=== PATIENT | female | born 1960 | race Caucasian/White ===

== ENCOUNTER 2016-10-20 10:07 | Inpatient (IN) ==
[2016-10-20] MEDS: LEVAQUIN 750 MG/D5W 150 ML IV SCH (12:22)
[2016-10-20] MEDS: SOLU-MEDROL IV SCH ×2 (12:23→20:45)
[2016-10-20] MEDS: NS 1,000 ML IV SCH (12:23)
[2016-10-20 12:32] LABS: BE 8.2 mmoll (-3.0-3.0); BLOOD TYPE ARTERIAL; DRAW SITE R RADIAL; O2(CT) 14.7 mL/dL (15.0-23.0); PO2(98.6) 51 mmHg (60-100); SAMPLE BLOOD; SAO2 86.7 % (95.0-100.0); THB 13.1 g/dL (11.5-17.4); pH(98.6) 7.39 (7.35-7.45)
[2016-10-20 12:39] LABS: MANUAL DIFF NEEDED? NO
[2016-10-20] MEDS: DUONEB (A & A) INH SCH ×4 (12:40→23:19)
[2016-10-20 12:45] LABS: BASO% 2.8 % (0.0-0.8); EOS# 0.09 X1000 (0.0-0.7); EOS% 1.1 % (0.0-10.0); HEMOGLOBIN 13.1 g/dL (12.0-16.0); IMM GRAN# 0.02 X1000 (0.0-0.04); IMM GRAN% 0.3 % (0.0-0.5); LYMPH# 0.88 X1000 (1.2-3.4); MCHC 31.2 g/dL (33-37); MCV 86.4 FL (81-99); MONO# 0.86 X1000 (0.11-0.59); MONO% 10.8 % (1.7-9.3); MPV 10.3 FL (7.4-10.4); PLT 332 X1000 (130-400); RBC 4.86 XMIL (4.2-5.4)
[2016-10-20 12:46] LABS: MODALITY ROOM AIR; PCO2(98.6) 58 mmHg (35-45)
[2016-10-20 12:47] LABS: ALLEN TEST YES
--- NOTE | 2016-10-20 12:52 | EKG Report ---
Test Performed on : 10/20/2016 12:47:45 PM Test Reason : sob Blood Pressure : / mmHG Vent. Rate : 087 BPM Atrial Rate : 087 BPM P-R Int : 152 ms QRS Dur : 086 ms QT Int : 366 ms P-R-T Axes : 075 089 077 degrees QTc Int : 440 ms Normal sinus rhythm. Cannot rule out Anterior infarct , age undetermined Abnormal ECG When compared with ECG of 10-JUL-2015 08:23, Minimal criteria for Anterior infarct are now present Confirmed by Wojciech Wilkerson MD ([id number]) on 10/21/2016 8:58:41 PM
[2016-10-20 13:03] LABS: MAGNESIUM 1.7 mg/dL (1.5-2.7)
[2016-10-20 13:04] LABS: AGAP 9; ALBUMIN 3.7 g/dL (3.5-5.0); ALKALINE PHOSPHATASE 76 U/L (32-104); BUN 14 mg/dL (8-22); CHLORIDE 92 mmol/L (98-107); COSMO 272; GOT 13 U/L (10-30); GPT 15 U/L (10-36); POTASSIUM 4.3 mmol/L (3.5-5.1); SODIUM 132 mmol/L (136-145); TCO2 31 mmol/L (25-35); TOTAL PROTEIN 6.5 g/dL (6.3-8.3)
--- NOTE | 2016-10-20 14:43 | Diag Imaging Result Document ---
PROCEDURE NAME: CHEST-2 VIEWS - 10/20/2016 TWO VIEWS OF THE CHEST: FINDINGS: There is a calcified granuloma in the right base. The heart size and pulmonary vascularity are within normal limits. There are calcified nodes in the right tracheobronchial and subcarinal region. There is thickening of the apical pleura particularly on the right. There is apparent COPD. Compared to 08/27/2016, there has been no significant change in the appearance of the chest. IMPRESSION: COPD and granulomatous changes.
--- NOTE | 2016-10-20 16:58 | HISTORY AND PHYSICAL ---
CHIEF COMPLAINT: Dyspnea. HISTORY OF PRESENT ILLNESS: Ms Lanza is a 56-year-old female who was at the office today with complaint of having worsening dyspnea for the previous 4 days. She has not been able to use her respiratory medicines since some of them were not covered by her insurance. She denies having any cough or fever. She also denies having any chest pain. PAST MEDICAL HISTORY: 1. COPD. 2. Type 2 diabetes mellitus. 3. Hypertension. 4. Dyslipidemia. 5. Gastroesophageal reflux. SOCIAL HISTORY: The patient has been smoking 1 pack of cigarettes per day since 1977. She does not use any recreational drugs. She also denies drinking alcohol. She lives with her . FAMILY HISTORY: There is family history of lung cancer. ALLERGIES: Patient reports to be allergic to Lopid and lisinopril. CURRENT HOME MEDICATIONS: 1. Aspirin 81 mg orally once daily. 2. Wellbutrin 150 mg orally once daily. 3. Glimepiride 4 mg orally once daily in the morning. 4. Metformin 1000 mg orally twice daily. 5. Lovastatin 10 mg orally once daily at bedtime. 6. Albuterol plus ipratropium bromide breathing treatments every 6 hours as needed for shortness of breath and wheezing. 7. Metoprolol ER 100 mg orally once daily. 8. Montelukast 10 mg orally once daily. 9. Omeprazole 20 mg orally once daily in the morning. 10. Pramipexole 1 mg orally once daily at bedtime. 11. ProAir HFA inhaler 2 puffs q.4 hours as needed for wheezing. 12. Spiriva 1 capsule by inhaler once daily. 13. Spironolactone/hydrochlorothiazide 25 mg/25 mg orally once daily in the morning. 14. Symbicort 160/4.5 two puffs twice daily. 15. Theophylline ER 300 mg orally once daily. 16. Vitamin B12 500 mcg orally once daily. REVIEW OF SYSTEMS: A full 14-point review of system was obtained that was pretty much the same as already has been explained in the HPI. PHYSICAL EXAMINATION: VITAL SIGNS: Temperature 98.2 degrees, pulse 61 per minute, respiratory rate 20 per minute, blood pressure 107/70, pulse oximetry 81% on room air. GENERAL: Patient is alert and oriented x3. She appears to be dyspneic. HEENT: Within normal limits. NECK: Supple without any thyromegaly. LYMPHATICS: No lymphadenopathy noted in the neck or axillary areas. RESPIRATORY SYSTEM: Patient appears to be very dyspneic. Bilateral lung air entry is significantly decreased but there are no rales or rhonchi present on auscultation. CARDIOVASCULAR SYSTEM: First and second heart sounds are audible without any murmurs or gallops. There is no pedal edema. GASTROINTESTINAL: Abdomen is nondistended. It is soft and nontender on palpation. No viscera are palpable and normal bowel sounds are present. MUSCULOSKELETAL SYSTEM: No deformities are present. NEUROLOGIC: No focal deficits are present. PSYCHIATRIC: Normal affect noted. GENITOURINARY: Deferred. INTEGUMENTARY: Skin is warm and without any rash. IMPRESSION: 1. Dyspnea with hypoxemia secondary to acute chronic obstructive pulmonary disease exacerbation. 2. Multiple comorbid conditions including type 2 diabetes mellitus that has been uncontrolled, hypertension and dyslipidemia. PLAN: Patient will be admitted to the Medical-Surgical floor on telemetry at [facility] and I am going to start her on Solu-Medrol 60 mg IV q.8 hours along with albuterol plus ipratropium nebulization treatments every 6 hours. She will have lispro insulin as per sliding scale to control her glucose levels and would also start her on levofloxacin 750 mg IV q.24 hours. I am going to obtain CBC, CMP, ABG, UA, ECG, proBNP and troponin levels along with chest x-rays on admission. She will continue her routine home medications and will follow the clinical course at the hospital. NEVA
[2016-10-20] MEDS: HUMALOG DOSE (PARKWAY) SUBQ SCH ×2 (17:25→22:26)
[2016-10-20] MEDS: LOVENOX SUBQ SCH (17:25)
[2016-10-20] MEDS: MEVACOR PO SCH (17:26)
[2016-10-20] MEDS: GLUCOPHAGE PO SCH (17:26)
[2016-10-20] MEDS: SPIRIVA INH SCH (20:14)
[2016-10-20] MEDS: MIRAPEX PO SCH (20:45)
[2016-10-21 01:35] LABS: URINE CULTURE PL NEEDED? NO; URINE SOURCE CLEAN CATCH
[2016-10-21] MEDS: NS 1,000 ML IV SCH ×3 (01:40→23:32)
[2016-10-21 01:51] LABS: BILIRUBIN URINE NEGATIVE (NEGATIVE); BLOOD URINE NEGATIVE (NEGATIVE); CLARITY CLEAR (CLEAR); COLOR YELLOW; LEUKOCYTES URINE NEGATIVE (NEGATIVE); NITRITE URINE NEGATIVE (NEGATIVE); PH URINE 6.5; PROTEIN URINE NEGATIVE (NEGATIVE); UROBILINOGEN URINE NORMAL
[2016-10-21 01:54] LABS: URINE EPITHELIAL CELLS <10 /HPF (<10); URINE RBC <10 /HPF (<10); URINE WBC <10 /HPF (<10)
[2016-10-21] MEDS: DUONEB (A & A) INH SCH ×6 (03:11→23:46)
[2016-10-21] MEDS: SOLU-MEDROL IV SCH ×3 (03:48→21:01)
[2016-10-21] MEDS: HUMALOG DOSE (PARKWAY) SUBQ SCH ×4 (06:56→21:10)
[2016-10-21] MEDS: PRILOSEC PO SCH (06:56)
[2016-10-21] MEDS ORDERED: TYLENOL PO PRN (07:27)
[2016-10-21] MEDS ORDERED: SPIRIVA INH SCH (07:30)
[2016-10-21] MEDS: THEO-DUR PO SCH (08:19)
[2016-10-21] MEDS: TOPROL XL PO SCH (08:19)
[2016-10-21] MEDS: GLUCOPHAGE PO SCH ×2 (08:19→17:39)
[2016-10-21] MEDS: WELLBUTRIN XL PO SCH (08:20)
[2016-10-21] MEDS: HYDROCHLOROTHIAZIDE PO SCH (08:20)
[2016-10-21] MEDS: SINGULAIR PO SCH (08:20)
[2016-10-21] MEDS: ASPIRIN EC PO SCH (08:20)
[2016-10-21] MEDS: VITAMIN B-12 PO SCH (08:20)
[2016-10-21] MEDS: AMARYL PO SCH (08:20)
[2016-10-21] MEDS: ALDACTONE PO SCH (08:20)
[2016-10-21] MEDS ORDERED: TOPROL XL PO SCH (09:00)
[2016-10-21] MEDS ORDERED: CYANOCOBALAMIN PO SCH (09:00)
[2016-10-21] MEDS ORDERED: SPIRONOLACT PO SCH (09:00)
[2016-10-21] MEDS ORDERED: THEO-24 PO SCH (09:00)
[2016-10-21] MEDS ORDERED: FOLIC ACID PO SCH (09:00)
[2016-10-21] MEDS ORDERED: HYDROCHLOROTHIAZID PO SCH (09:00)
[2016-10-21] MEDS: LEVAQUIN 750 MG/D5W 150 ML IV SCH (11:23)
[2016-10-21] MEDS: LOVENOX SUBQ SCH (15:51)
[2016-10-21] MEDS: MEVACOR PO SCH (17:39)
[2016-10-21] MEDS: SPIRIVA INH SCH ×2 (19:55→22:09)
[2016-10-21] MEDS: MIRAPEX PO SCH (21:01)
[2016-10-22] MEDS: SOLU-MEDROL IV SCH ×3 (03:48→20:29)
[2016-10-22] MEDS: DUONEB (A & A) INH SCH ×6 (04:11→22:38)
[2016-10-22] MEDS: HUMALOG DOSE (PARKWAY) SUBQ SCH ×4 (06:36→21:26)
[2016-10-22] MEDS: PRILOSEC PO SCH (06:36)
[2016-10-22] MEDS: GLUCOPHAGE PO SCH ×2 (08:17→18:33)
[2016-10-22] MEDS: THEO-DUR PO SCH (08:17)
[2016-10-22] MEDS: AMARYL PO SCH (08:18)
[2016-10-22] MEDS: WELLBUTRIN XL PO SCH (08:18)
[2016-10-22] MEDS: VITAMIN B-12 PO SCH (08:18)
[2016-10-22] MEDS: ALDACTONE PO SCH (08:18)
[2016-10-22] MEDS: ASPIRIN EC PO SCH (08:18)
[2016-10-22] MEDS: SINGULAIR PO SCH (08:18)
[2016-10-22] MEDS: HYDROCHLOROTHIAZIDE PO SCH (08:18)
[2016-10-22] MEDS: TOPROL XL PO SCH (08:18)
[2016-10-22] MEDS: NS 1,000 ML IV SCH ×2 (08:23→18:33)
[2016-10-22 09:13] LABS: BE 4.6 mmoll (-3.0-3.0); BLOOD TYPE ARTERIAL; DRAW SITE R RADIAL; METHB 0.8 % (0.0-1.5); O2(CT) 14.9 mL/dL (15.0-23.0); PO2(98.6) 59 mmHg (60-100); SAMPLE BLOOD; SAO2 90.3 % (95.0-100.0); pH(98.6) 7.38 (7.35-7.45)
[2016-10-22 09:20] LABS: PCO2(98.6) 52 mmHg (35-45)
[2016-10-22 09:21] LABS: MODALITY ROOM AIR
[2016-10-22 09:22] LABS: ALLEN TEST YES
[2016-10-22] MEDS: LEVAQUIN 750 MG/D5W 150 ML IV SCH (13:40)
[2016-10-22] MEDS: LOVENOX SUBQ SCH (15:54)
[2016-10-22] MEDS: MEVACOR PO SCH (18:33)
[2016-10-22] MEDS: SPIRIVA INH SCH (19:05)
[2016-10-22] MEDS: MIRAPEX PO SCH (20:29)
[2016-10-23] MEDS: DUONEB (A & A) INH SCH ×3 (02:49→11:30)
[2016-10-23] MEDS: NS 1,000 ML IV SCH (03:46)
[2016-10-23] MEDS: SOLU-MEDROL IV SCH (03:46)
[2016-10-23] MEDS: PRILOSEC PO SCH (06:30)
[2016-10-23] MEDS: HUMALOG DOSE (PARKWAY) SUBQ SCH ×2 (06:30→11:40)
[2016-10-23] MEDS: GLUCOPHAGE PO SCH (08:08)
[2016-10-23] MEDS: ALDACTONE PO SCH (08:08)
[2016-10-23] MEDS: THEO-DUR PO SCH (08:08)
[2016-10-23] MEDS: TOPROL XL PO SCH (08:08)
[2016-10-23] MEDS: AMARYL PO SCH (08:08)
[2016-10-23] MEDS: WELLBUTRIN XL PO SCH (08:09)
[2016-10-23] MEDS: SINGULAIR PO SCH (08:09)
[2016-10-23] MEDS: HYDROCHLOROTHIAZIDE PO SCH (08:09)
[2016-10-23] MEDS: ASPIRIN EC PO SCH (08:09)
[2016-10-23] MEDS: VITAMIN B-12 PO SCH (08:09)
--- NOTE | 2016-10-23 10:54 | DISCHARGE SUMMARY ---
ADMISSION DATE: 10/20/2016 DISCHARGE DATE: 10/23/2016 DISCHARGE DIAGNOSES: 1. Dyspnea and hypoxemia secondary to acute chronic obstructive pulmonary disease exacerbation. 2. Type 2 diabetes mellitus. 3. Hypertension. HOSPITAL COURSE: Ms. Lanza is a 56-year-old, female who was admitted to the hospital after worsening dyspnea of 4 days duration that was associated with hypoxemia. She was treated here in the hospital with oxygen along with IV Solu-Medrol. She was also treated with albuterol and Atrovent nebulization treatments and her routine home medications were continued. Furthermore she was given levofloxacin intravenously for any possible lower respiratory infection. Her condition has improved although she is still hypoxemic and, therefore, she will be discharged on home oxygen. DISCHARGE MEDICATIONS: 1. Aspirin 81 mg orally once daily. 2. Wellbutrin XR 150 mg orally once daily. 3. Glimepiride 4 mg orally once daily in the morning. 4. Metformin 1000 mg orally twice daily. 5. Lovastatin 10 mg orally once daily at bedtime. 6. Albuterol plus ipratropium bromide breathing treatments every 6 hours as directed. 7. Metoprolol ER 100 mg orally once daily. 8. Montelukast 10 mg orally once daily. 9. Omeprazole 20 mg orally once daily in the morning. 10. Pramipexole 1 mg orally once daily at bedtime. 11. ProAir HFA inhaler 2 puffs q.4 hours as needed for wheezing. 12. Spiriva 1 capsule by inhalation once daily. 13. Spironolactone/hydrochlorothiazide 25 mg/25 mg orally once daily in the morning. 14. Symbicort 160/4.5 two puffs twice daily. 15. Theophylline ER 300 mg orally once daily. 16. Vitamin B12 500 mcg orally once daily. 17. Medrol Dosepak to be taken as directed. 18. Oxygen 2 L 24 hours via nasal cannula. FOLLOWUP: She will follow with me at the office in approximately 4-5 days.
[2016-10-23 12:36] VITALS: BP 156/59
== END 2016-10-23 14:45 | disposition home health service (06) | DRG 192 ==
LOC: P.DIRADM 10:07 → P.MEDSURG 10:53
PROVIDERS: ADMIT Internal Medicine; ATTEND Internal Medicine
DX: J44.1 Chronic obstructive pulmonary disease with (acute) exacerbation (principal); E11.65 Type 2 diabetes mellitus with hyperglycemia; I10 Essential (primary) hypertension; R09.02 Hypoxemia; E78.5 Hyperlipidemia, unspecified; K21.9 Gastro-esophageal reflux disease without esophagitis; F17.210 Nicotine dependence, cigarettes, uncomplicated; R51 Headache; Z80.1 Family history of malignant neoplasm of trachea, bronchus and lung; Z79.899 Other long term (current) drug therapy; Z79.82 Long term (current) use of aspirin; Z79.84 Long term (current) use of oral hypoglycemic drugs; Z79.51 Long term (current) use of inhaled steroids
CPT/HCPCS: 71020; 80053; 81001; 82550; 82805; 82948; 83735; 83880; 84484; 85025; 93005; 93010; 94640; 94761; J1650; J1815; J2930; J7030

== ENCOUNTER 2017-02-27 10:11 | Inpatient (IN) ==
[2017-02-27 10:35] LABS: BE 5.8 mmoll (-3.0-3.0); BLOOD TYPE ARTERIAL; DRAW SITE R RADIAL; METHB 0.8 % (0.0-1.5); O2(CT) 14.7 mL/dL (15.0-23.0); SAMPLE BLOOD; SAO2 87.5 % (95.0-100.0); THB 12.7 g/dL (11.5-17.4); pH(98.6) 7.39 (7.35-7.45)
[2017-02-27 10:38] LABS: ALLEN TEST YES; MODALITY ROOM AIR
[2017-02-27 10:40] LABS: PCO2(98.6) 53 mmHg (35-45); PO2(98.6) 49 mmHg (60-100)
[2017-02-27 10:50] LABS: MANUAL DIFF NEEDED? NO
[2017-02-27 10:53] LABS: BASO% 0.6 % (0.0-0.8); EOS# 0.23 X1000 (0.0-0.7); EOS% 2.8 % (0.0-10.0); HEMATOCRIT 40.8 % (37.0-47.0); HEMOGLOBIN 12.7 g/dL (12.0-16.0); IMM GRAN# 0.03 X1000 (0.0-0.04); IMM GRAN% 0.4 % (0.0-0.5); LYMPH# 1.31 X1000 (1.2-3.4); LYMPH% 15.8 % (20.5-51.1); MCH 26.3 PG (27-31); MCHC 31.1 g/dL (33-37); MCV 84.5 FL (81-99); MONO% 10.9 % (1.7-9.3); MPV 10.3 FL (7.4-10.4); NEUT% 69.5 % (42.2-75.2); PLT 375 X1000 (130-400); RBC 4.83 XMIL (4.2-5.4)
--- NOTE | 2017-02-27 11:12 | Diag Imaging Result Doc PS360 ---
EXAM: CHEST-2 VIEWS HISTORY: cough TECHNIQUE: PA and lateral chest COMMENT: There are densely calcified nodes in the subcarina right hilum and right tracheobronchial region. There are calcified granulomata in the right lower lobe. There may be COPD. There is apical pleural thickening on the right. Compared to 02/24/2017 there has been no significant change. IMPRESSION: Stable chest. Electronically signed by Azael Jenkins 02/27/2017 11:10 AM
[2017-02-27 11:21] LABS: AGAP 11; ALBUMIN 4.4 g/dL (3.5-5.0); ALKALINE PHOSPHATASE 78 U/L (32-104); BUN 20 mg/dL (8-22); CALCIUM 9.5 mg/dL (8.8-10.2); CHLORIDE 93 mmol/L (98-107); COSMO 282; GOT 18 U/L (10-30); GPT 19 U/L (10-36); SODIUM 134 mmol/L (136-145); TCO2 30 mmol/L (25-35); TOTAL PROTEIN 7.3 g/dL (6.3-8.3)
[2017-02-27] MEDS ORDERED: SOLU-MEDROL IV ONE (12:06)
[2017-02-27] MEDS ORDERED: DUONEB (A & A) INH ONE (12:06)
[2017-02-27] MEDS ORDERED: DUONEB (A & A) ONE (12:16)
[2017-02-27] MEDS ORDERED: ZOFRAN IV PRN (12:31)
[2017-02-27] MEDS ORDERED: DUONEB (A & A) INH PRN (12:34)
[2017-02-27 13:21] LABS: HEMOGLOBIN A1C 8.5 % (4.8-6.0)
[2017-02-27] MEDS: DUONEB (A & A) INH SCH ×3 (14:49→22:35)
[2017-02-27] MEDS ORDERED: HUMALOG DOSE (PARKWAY) SUBQ SCH (16:00)
--- NOTE | 2017-02-27 16:27 | HISTORY AND PHYSICAL ---
PRIMARY CARE PHYSICIAN: Braulio Gonzalez MD CHIEF COMPLAINT: Shortness of breath. HISTORY OF PRESENT ILLNESS: This is a 56-year-old female with a history of chronic obstructive pulmonary disease with continued tobacco use, diabetes type 2, who presented to the emergency room today for recheck after being seen 3 days prior in the emergency room. Being diagnosed at this time with bronchitis. Given a Z-Keanu and instructed to follow up with Dr. Gonzalez. The patient's symptoms have increased over the last 12-18 hours; therefore, she presented back to the emergency room. On arrival, she was found to have O2 sats as low as 88 to 89% with a chest x-ray unchanged actually from the . She was given 125 of Solu-Medrol, DuoNeb treatment, and admitted for further evaluation and treatment. PAST MEDICAL HISTORY: Type 2 diabetes, chronic obstructive pulmonary disease, hypertension, dyslipidemia with history of intolerance to statins, gastroesophageal reflux disease, chronic back pain, restless legs syndrome, and allergic rhinitis. SOCIAL HISTORY: She smokes 1 to 1-1/2 pack of cigarettes a day. She denies alcohol or illicit drug use. ALLERGIES: Gemfibrozil, which causes muscle pain and lisinopril which causes angioedema. HOME MEDICATIONS: A list will be obtained. REVIEW OF SYSTEMS: A 14 point review of systems is discussed with the patient, with pertinent positives being shortness of breath, 2-3 pillow orthopnea, dyspnea on exertion, productive cough, sore throat, and dyspnea on exertion. She denied any chest pain, palpitations, dizziness, syncope, nausea, vomiting, diarrhea, constipation, black or bloody vomitus, black or bloody stools, hematuria, dysuria, frequency, or urgency. PHYSICAL EXAMINATION: GENERAL: This is a 56-year-old female, who is sitting in the bed in mild distress. VITAL SIGNS: Blood pressure is 150/70 with an oxygen saturation of 87% on room air. Respirations are 26 and 32. Temperature is 98.2 degrees. HEENT: Head is normocephalic, atraumatic. Pupils equal, round, react to light. EOMs are intact. Sclerae anicteric. Mucous membranes are moist. She does have poor dentition. NECK: Supple, with trachea midline. CARDIOVASCULAR: Regular rate and rhythm. S1 and S2 are appreciated, with no murmurs or gallops. PULMONARY: Breath sounds are diminished throughout with wheezing bilateral. She does have prolonged expiration. Chest does rise and fall symmetrically with respiration. GASTROINTESTINAL: Abdomen is soft, nontender, nondistended with bowel sounds in all 4 quadrants. BACK: No costovertebral angle tenderness. No spine tenderness. MUSCULOSKELETAL: Good range of motion of joints. NEUROLOGIC: She is alert and oriented x3. Cranial nerves 2-12 grossly intact. EXTREMITIES: No clubbing, cyanosis, or edema. Calves are nontender. Pulses are palpable x4. DIAGNOSTICS: WBC is 8.2, with a hemoglobin of 12.7, hematocrit 40.8, platelets of 375,000. Sodium is 134, potassium 4, BUN 20, creatinine 0.8, with a glucose of 306. Hemoglobin A1c is 8.5. ASSESSMENT AND PLAN: 1. Chronic obstructive pulmonary disease exacerbation, failed outpatient treatment. 2. Bronchitis, failed outpatient treatment. 3. Insulin-dependent diabetes, noncompliant with a hemoglobin A1c of 8.5. 4. Hypertension. 5. Subjective fever. 6. Hypoxemia. The patient will be admitted to the hospital. We will identify her home medications and continue as appropriate. We will give supplemental oxygen with DuoNeb q.4 hours or q.2 hours p.r.n., Solu- Medrol 125 x 1 then 60 q.8 hours IV then will taper. As she had has had a productive cough and subjective fever, did have an elevated white count on the . Will go ahead and get a sputum culture and blood cultures and start her on Levaquin 750 prophylactic. Antibiotics may be changed as appropriate if cultures return positive. We will give fingerstick blood sugars with sliding scale insulin. She will be placed on telemetry. For DVT prophylaxis we will use Lovenox, for GI prophylaxis Prilosec. Further treatments pending hospital course. Dictated by ASHLEY Chau for Brijesh Cedeno MD cc: ASHLEY Chau MD
[2017-02-27] MEDS: NS 1,000 ML IV SCH (16:49)
[2017-02-27] MEDS: LEVAQUIN 750 MG/D5W 750 MG/150 ML IVPB IV SCH (16:49)
[2017-02-27] MEDS: SOLU-MEDROL IV SCH (22:00)
[2017-02-27] MEDS: MIRAPEX PO SCH (23:59)
[2017-02-28] MEDS: DUONEB (A & A) INH SCH ×6 (02:44→23:29)
[2017-02-28] MEDS: SOLU-MEDROL IV SCH ×3 (04:30→22:17)
[2017-02-28 05:52] LABS: BLOOD TYPE ARTERIAL; DRAW SITE R BRACHIAL; METHB 0.7 % (0.0-1.5); O2(CT) 15.7 mL/dL (15.0-23.0); PO2(98.6) 67 mmHg (60-100); SAMPLE BLOOD; SAO2 94.4 % (95.0-100.0); THB 12.1 g/dL (11.5-17.4); pH(98.6) 7.38 (7.35-7.45)
[2017-02-28 05:55] LABS: ALLEN TEST NO; MODALITY CANNULA; PCO2(98.6) 55 mmHg (35-45)
[2017-02-28 06:30] LABS: HEMATOCRIT 37.9 % (37.0-47.0); HEMOGLOBIN 11.8 g/dL (12.0-16.0); MCH 26.1 PG (27-31); MCHC 31.1 g/dL (33-37); MCV 83.8 FL (81-99); MPV 10.4 FL (7.4-10.4); RBC 4.52 XMIL (4.2-5.4)
[2017-02-28] MEDS: PRILOSEC PO SCH (06:39)
[2017-02-28] MEDS: NS 1,000 ML IV SCH ×3 (06:40→22:24)
[2017-02-28] MEDS: HUMALOG DOSE (PARKWAY) SUBQ SCH ×4 (06:43→22:18)
[2017-02-28 06:47] LABS: AGAP 12; ALKALINE PHOSPHATASE 72 U/L (32-104); BUN 18 mg/dL (8-22); CALCIUM 9.5 mg/dL (8.8-10.2); CHLORIDE 94 mmol/L (98-107); COSMO 288; GOT 12 U/L (10-30); GPT 17 U/L (10-36); MAGNESIUM 2.1 mg/dL (1.5-2.7); POTASSIUM 4.9 mmol/L (3.5-5.1); SODIUM 135 mmol/L (136-145); TCO2 30 mmol/L (25-35); TOTAL PROTEIN 6.8 g/dL (6.3-8.3)
[2017-02-28] MEDS ORDERED: HUMALOG MIX 75/25 SUBQ SCH ×4 (09:00→21:00)
[2017-02-28] MEDS ORDERED: SPIRONOLACT PO SCH (09:00)
[2017-02-28] MEDS ORDERED: HYDROCHLOROTHIAZID PO SCH (09:00)
--- NOTE | 2017-02-28 09:13 | PROGRESS NOTE ---
DATE: 02/28/2017 SUBJECTIVE: This patient states that she feels better today. She continues with some shortness of breath, although she feels much improved. She denies any chest pain, fever, or chills. OBJECTIVE: Vital Signs: Blood pressure is 142/77, heart rate of 86, respirations are 18, temperature is 98.1 degrees oral, with oxygen saturations of 93-95 on 2 L nasal cannula. Cardiovascular: Regular rate and rhythm. S1 and S2 are appreciated. Pulmonary: Breath sounds, she has wheezing throughout. She continues with diminished breath sounds but they are better than yesterday. She has wheezing scattered throughout. Gastrointestinal: Abdomen is soft, nontender, and nondistended with bowel sounds in all 4 quadrants. Musculoskeletal: Good range of motion of the joints. Neurologic: She is alert and oriented x3. Extremities: No clubbing, cyanosis, or edema. Calves are nontender. Pulses are palpable x4. ASSESSMENT AND PLAN: 1. Chronic obstructive pulmonary disease, acute on chronic. 2. Bronchitis with failed outpatient treatment. 3. Insulin-dependent diabetes with noncompliance, with hemoglobin A1c of 8.5. 4. Hypertension. 5. Hypoxemia. PLAN: We will continue with gentle hydration. We will give supplemental oxygen with DuoNebs q.4 to q.2 p.r.n. Continue with IV steroids, pattern blood glucose with sliding scale insulin. Dictated by ASHLEY Chau for Brijesh Cedeno MD cc: ASHLEY Chau MD
[2017-02-28] MEDS: AMARYL PO SCH (09:32)
[2017-02-28] MEDS: LOVENOX SUBQ SCH (09:33)
[2017-02-28] MEDS: THEO-DUR PO SCH (09:33)
[2017-02-28] MEDS: SINGULAIR PO SCH (09:33)
[2017-02-28] MEDS: VITAMIN B-12 PO SCH (09:34)
[2017-02-28] MEDS: TOPROL XL PO SCH (09:34)
[2017-02-28] MEDS: ASPIRIN EC PO SCH (09:34)
[2017-02-28] MEDS: HYDROCHLOROTHIAZIDE PO SCH (09:35)
[2017-02-28] MEDS: GLUCOPHAGE PO SCH ×2 (09:35→16:38)
[2017-02-28] MEDS: ALDACTONE PO SCH (09:35)
[2017-02-28] MEDS: NICODERM PATCH TD SCH (09:35)
[2017-02-28] MEDS: LEVAQUIN 750 MG/D5W 750 MG/150 ML IVPB IV SCH (12:12)
[2017-02-28] MEDS ORDERED: ROBITUSSIN-AC PO PRN (13:31)
[2017-02-28] MEDS: MEVACOR PO SCH (16:38)
[2017-02-28] MEDS: MIRAPEX PO SCH (22:19)
[2017-03-01] MEDS ORDERED: TYLENOL PO ONE (03:42)
[2017-03-01] MEDS: SOLU-MEDROL IV SCH ×2 (04:00→16:20)
[2017-03-01] MEDS: HUMALOG DOSE (PARKWAY) SUBQ SCH ×5 (06:19→21:45)
[2017-03-01 06:25] LABS: HEMATOCRIT 38.8 % (37.0-47.0); HEMOGLOBIN 11.7 g/dL (12.0-16.0); MCH 25.9 PG (27-31); MCHC 30.2 g/dL (33-37); MCV 85.8 FL (81-99); MPV 10.5 FL (7.4-10.4); RBC 4.52 XMIL (4.2-5.4)
[2017-03-01 06:39] LABS: AGAP 10; BUN 22 mg/dL (8-22); CALCIUM 8.8 mg/dL (8.8-10.2); CHLORIDE 95 mmol/L (98-107); COSMO 290; POTASSIUM 4.9 mmol/L (3.5-5.1); SODIUM 135 mmol/L (136-145); TCO2 30 mmol/L (25-35)
[2017-03-01] MEDS: DUONEB (A & A) INH SCH ×5 (07:41→23:05)
[2017-03-01] MEDS: PRILOSEC PO SCH (07:58)
[2017-03-01] MEDS: GLUCOPHAGE PO SCH ×2 (07:58→16:20)
[2017-03-01] MEDS: AMARYL PO SCH (07:58)
[2017-03-01] MEDS: HYDROCHLOROTHIAZIDE PO SCH (09:54)
[2017-03-01] MEDS: THEO-DUR PO SCH (09:54)
[2017-03-01] MEDS: ASPIRIN EC PO SCH (09:54)
[2017-03-01] MEDS: TOPROL XL PO SCH (09:55)
[2017-03-01] MEDS: VITAMIN B-12 PO SCH (09:55)
[2017-03-01] MEDS: SINGULAIR PO SCH (09:55)
[2017-03-01] MEDS: NICODERM PATCH TD SCH (09:55)
[2017-03-01] MEDS: LOVENOX SUBQ SCH (09:57)
[2017-03-01] MEDS: ALDACTONE PO SCH (09:58)
[2017-03-01] MEDS ORDERED: HUMALOG MIX 75/25 SUBQ SCH ×2 (10:51)
--- NOTE | 2017-03-01 11:40 | PROGRESS NOTE ---
DATE: 03/01/2017 SUBJECTIVE: The patient notes that she is feeling a little bit better. She was actually able to get up and go shower this morning, although she is very and tired fatigued since showering. Denies any current chest pain. OBJECTIVE: Vital Signs: Reviewed. Temperature 98.3 degrees, pulse 73, respiratory rate 18, blood pressure 138/64, saturating 100% on 2 L. HEENT: Normocephalic, atraumatic. Neck: Supple. CV: Regular rate. Chest: Moderate wheezing. Moderately labored, but actually improved from yesterday's exam. Abdomen: Soft. Extremities: Moves all extremities. Neurologic: No focal changes. Skin: Warm and dry. No rashes. DIAGNOSTIC DATA: WBCs 12. Glucose 318-402. ASSESSMENT: 1. Chronic obstructive pulmonary disease with moderate exacerbation. 2. Diabetes with elevated blood sugars likely secondary to poor home control as well as currently on steroids. Her A1c is 8.5 at home. We did increase her insulin and will increase it again today although we are decreasing her steroids. Hopefully, this will help. We will continue to follow. cc: Brijesh Cedeno MD
[2017-03-01] MEDS: LEVAQUIN 750 MG/D5W 750 MG/150 ML IVPB IV SCH (11:47)
[2017-03-01] MEDS: NS 1,000 ML IV SCH ×2 (14:56→21:49)
[2017-03-01] MEDS: MEVACOR PO SCH (16:20)
[2017-03-01] MEDS: MIRAPEX PO SCH (21:46)
[2017-03-02] MEDS: DUONEB (A & A) INH SCH ×7 (03:10→23:13)
[2017-03-02] MEDS: SOLU-MEDROL IV SCH ×2 (04:53→16:25)
[2017-03-02] MEDS ORDERED: TYLENOL PO ONE (04:54)
[2017-03-02] MEDS: PRILOSEC PO SCH (06:39)
[2017-03-02] MEDS: HUMALOG DOSE (PARKWAY) SUBQ SCH ×4 (06:39→20:40)
[2017-03-02 07:04] LABS: HEMATOCRIT 38.8 % (37.0-47.0); HEMOGLOBIN 11.8 g/dL (12.0-16.0); MCH 25.9 PG (27-31); MCHC 30.4 g/dL (33-37); MCV 85.1 FL (81-99); MPV 10.2 FL (7.4-10.4); RBC 4.56 XMIL (4.2-5.4)
[2017-03-02 07:22] LABS: AGAP 8; ALKALINE PHOSPHATASE 70 U/L (32-104); BUN 19 mg/dL (8-22); CALCIUM 8.6 mg/dL (8.8-10.2); CHLORIDE 97 mmol/L (98-107); COSMO 287; GOT 13 U/L (10-30); GPT 20 U/L (10-36); MAGNESIUM 2.1 mg/dL (1.5-2.7); POTASSIUM 4.3 mmol/L (3.5-5.1); SODIUM 135 mmol/L (136-145); TCO2 30 mmol/L (25-35); TOTAL BILIRUBIN < 0.15 mg/dL (0.20-1.00); TOTAL PROTEIN 6.6 g/dL (6.3-8.3)
[2017-03-02] MEDS: GLUCOPHAGE PO SCH (07:57)
[2017-03-02] MEDS: AMARYL PO SCH (07:57)
[2017-03-02] MEDS: NICODERM PATCH TD SCH ×2 (07:58→08:24)
[2017-03-02] MEDS: ASPIRIN EC PO SCH ×2 (07:58→08:24)
[2017-03-02] MEDS: HYDROCHLOROTHIAZIDE PO SCH ×2 (07:58→08:24)
[2017-03-02] MEDS: TOPROL XL PO SCH ×2 (07:58→08:25)
[2017-03-02] MEDS: ALDACTONE PO SCH ×2 (07:58→08:24)
[2017-03-02] MEDS: SINGULAIR PO SCH ×2 (07:58→08:24)
[2017-03-02] MEDS: THEO-DUR PO SCH (07:59)
[2017-03-02] MEDS: VITAMIN B-12 PO SCH (07:59)
[2017-03-02] MEDS: LOVENOX SUBQ SCH (07:59)
[2017-03-02] MEDS: LEVAQUIN 750 MG/D5W 750 MG/150 ML IVPB IV SCH (12:19)
--- NOTE | 2017-03-02 14:05 | PROGRESS NOTE ---
DATE: 03/02/2017 SUBJECTIVE: Today Ms. Lanza refers to be doing a little better. Continues to have wheezing and some shortness of breath. Of note, Ms. Lanza is known to have COPD. She is on nebulization p.r.n. at home and inhalers, follows up with Dr. Gonzalez, has never seen a event lighting specialist before. Continues to actively smoke until she came in 2 days ago. OBJECTIVE: Vital Signs: Blood pressure is 142/64, pulse is 80, respirations 18 , temperature is 98.1 degrees. General exam: Ms. Lanza is a 56-year-old female. She is in bed, does not seem to be in any remarkable distress. HEENT: Mucosa is pink and moist. Anicteric. Acyanotic. Neck: Neck is supple. Chest: Good air entry bilaterally. There is diffuse bilateral end exploratory wheezing and there is also prolongation of the expiratory phase of respiration. Cardiovascular: Regular rate and rhythm. Abdomen: Soft. Extremities: No pedal edema. LABORATORY DATA: WBC is 13.27m hemoglobin is 11.8, platelet count of 263. Chemistry is reviewed. Sodium is 135, potassium 4.2, chloride 97, glucose is 356. CURRENT MEDICATIONS: 1. DuoNebs. 2. Aspirin. 3. Lovenox. 4. Glyburide 4 mg daily. 5. Lispro 75/25 in the morning and at night in the evening. 6. Levofloxacin. 7. Methylprednisone 40 mg intravenous q. 12 hours.. ASSESSMENT: 1. Acute on chronic hypercarbic respiratory failure. 2. Chronic obstructive pulmonary disease exacerbation. 3. Uncontrolled diabetes mellitus. 4. Active tobacco use. PLAN: We are going to continue with the current antibiotics, bronchodilation and steroid. I will withhold the oral hypoglycemic agent and use insulin for better glucose control while this patient is in hospital. I will also discontinue the IV fluids. We will get the patient incentive spirometer. Hopefully we will be able to discharge her within a day or two. cc: Abdiel Garza MD MTDD
[2017-03-02] MEDS: MEVACOR PO SCH (16:24)
[2017-03-02] MEDS: MIRAPEX PO SCH (20:40)
[2017-03-02] MEDS ORDERED: HUMALOG MIX 75/25 SUBQ SCH (21:00)
[2017-03-03] MEDS: DUONEB (A & A) INH SCH ×6 (03:12→23:50)
[2017-03-03] MEDS: SOLU-MEDROL IV SCH ×2 (03:33→17:05)
[2017-03-03] MEDS: PRILOSEC PO SCH (06:22)
[2017-03-03] MEDS: HUMALOG DOSE (PARKWAY) SUBQ SCH ×4 (06:23→22:09)
[2017-03-03 06:32] LABS: AGAP 5; BUN 18 mg/dL (8-22); CALCIUM 8.9 mg/dL (8.8-10.2); CHLORIDE 96 mmol/L (98-107); COSMO 288; POTASSIUM 4.9 mmol/L (3.5-5.1); SODIUM 137 mmol/L (136-145); TCO2 36 mmol/L (25-35)
[2017-03-03] MEDS ORDERED: HUMALOG MIX 75/25 SUBQ SCH ×3 (09:00→21:00)
[2017-03-03] MEDS: TOPROL XL PO SCH (09:33)
[2017-03-03] MEDS: NICODERM PATCH TD SCH (09:33)
[2017-03-03] MEDS: THEO-DUR PO SCH (09:33)
[2017-03-03] MEDS: SINGULAIR PO SCH (09:33)
[2017-03-03] MEDS: LOVENOX SUBQ SCH (09:33)
[2017-03-03] MEDS: ASPIRIN EC PO SCH (09:34)
[2017-03-03] MEDS: HYDROCHLOROTHIAZIDE PO SCH (09:34)
[2017-03-03] MEDS: VITAMIN B-12 PO SCH (09:34)
[2017-03-03] MEDS: ALDACTONE PO SCH (09:34)
[2017-03-03] MEDS: LEVAQUIN PO SCH (11:48)
--- NOTE | 2017-03-03 15:08 | PROGRESS NOTE ---
DATE: 03/05/2017 SUBJECTIVE: Today Ms. Lanza refers to be doing fine. He continues to have some chest tightness. OBJECTIVE: Vital signs: Blood pressure is 151/72, pulse of 83, respiration is 18. The patient is saturating 96% on room air. General exam: Ms. Lanza is a 56-year-old female. She is in bed, not in any distress. HEENT: Mucosa is pink and moist. Anicteric and acyanotic. Neck: Supple. Chest: Air entry is bilaterally reduced. There is diffuse bilateral expiratory wheezing. It sounds a little better than yesterday though. Cardiovascular: Regular rate and rhythm. Abdomen: Soft, nontender. Extremities: No pedal edema. ANCIENT ART CURATOR: Patient is awake and alert. LABORATORY DATA: Sodium is 137, potassium is 4.9, chloride 96, bicarb is 36, glucose is 332. ASSESSMENT: 1. Acute on chronic hypercarbic respiratory failure. 2. Chronic obstructive pulmonary disease exacerbation. 3. Uncontrolled diabetes mellitus. 4. Active tobacco use. For today, Ms. Lanza continues to have remarkable findings on the chest exams. We are going to continue another 24 hours of bronchodilator therapy, steroids and IV antibiotics, and hopefully we can discharge her tomorrow. We also went up on her insulin needs to have a better glucose. We went up on the 70/30 to 20 units b.i.d. for better glucose control. I have reduced the methylprednisolone to 40 IV q.12 in anticipation of gradually tapering her off. We will review Ms. Lanza tomorrow and hopefully might be able to discharge her. cc: Abdiel Garza MD
[2017-03-03] MEDS: MEVACOR PO SCH (17:05)
[2017-03-03] MEDS: MIRAPEX PO SCH (22:08)
[2017-03-04] MEDS: DUONEB (A & A) INH SCH ×3 (03:51→11:12)
[2017-03-04] MEDS: SOLU-MEDROL IV SCH (04:51)
[2017-03-04 05:51] VITALS: BP 147/68
[2017-03-04] MEDS: PRILOSEC PO SCH (06:46)
[2017-03-04] MEDS: HUMALOG DOSE (PARKWAY) SUBQ SCH ×2 (06:46→12:26)
[2017-03-04] MEDS: NICODERM PATCH TD SCH (08:56)
[2017-03-04] MEDS: SINGULAIR PO SCH (08:57)
[2017-03-04] MEDS: ALDACTONE PO SCH (08:57)
[2017-03-04] MEDS: HYDROCHLOROTHIAZIDE PO SCH (08:57)
[2017-03-04] MEDS: ASPIRIN EC PO SCH (08:57)
[2017-03-04] MEDS: LOVENOX SUBQ SCH (08:57)
[2017-03-04] MEDS: THEO-DUR PO SCH (08:57)
[2017-03-04] MEDS: VITAMIN B-12 PO SCH (08:57)
[2017-03-04] MEDS: TOPROL XL PO SCH (08:58)
[2017-03-04] MEDS: LEVAQUIN PO SCH (12:27)
--- NOTE | 2017-03-04 17:47 | DISCHARGE SUMMARY ---
ADMISSION DATE: 02/28/2017 DISCHARGE DATE: 03/04/2017 DISPOSITION: Home. FOLLOWUP: 1. Dr. Gonzalez. 2. Dr. Lee. CONSULTATION DURING THIS ADMISSION: None. IMAGING STUDIES OF SIGNIFICANCE: A chest x-ray was done which shows COPD and apical pleural thickening. ADMISSION DIAGNOSES: 1. Chronic obstructive pulmonary disease exacerbation. Failed outpatient therapy. 2. Insulin-dependent diabetes mellitus. 3. Hypertension. 4. Hypoxemia. DIAGNOSES AT THE TIME OF DISCHARGE: 1. Acute on chronic hypercarbic respiratory failure. 2. Chronic obstructive pulmonary disease exacerbation. 3. Uncontrolled diabetes mellitus. 4. Active tobacco use. Patient has been counseled. DISCHARGE MEDICATIONS: 1. Metformin 1000 b.i.d. 2. Montelukast. 3. Metoprolol 100 mg daily. 4. Spironolactone/hydrochlorothiazide 25 mg daily. 5. Omeprazole 20 mg daily. 6. Glyburide 4 mg daily. 7. Pramipexole 1 mg at bedtime. 8. Aspirin 81 mg daily. 9. Theophylline 200 mg daily. 10. Lovastatin 10 mg daily. 11. Levofloxacin 750 p.o. daily. 12. Prednisone 20 mg daily. 13. Insulin 70/30, 20 units b.i.d. PRESENTING COMPLAINT: Was shortness of breath. HISTORY OF PRESENTING COMPLAINT: Ms. Lanza is a 56-year-old, female, who presented to the emergency department because of worsening shortness of breath. The patient according to her HPI went to see Dr. Gonzalez a couple days before coming in. Was given Z-Keanu however that did not improve her symptoms so she decided to come into the emergency room where she was found to have an oxygen saturation level of 88-89%. Blood gases show a pCO2 of 53 and PO2 was 49%. The patient was admitted for further medical care. HOSPITAL COURSE: The patient did pretty well. She was treated in regular fashion with IV antibiotics, steroids and bronchodilator therapy and aggressive chest physical therapy. She responded well. She responded very well to intervention. There was no need to consult any other subspecialty. The patient did have some issues with the control of her blood glucose but I guess some of it is because she was on high-dose of steroids as well. Some changes were done to her insulin regimen and we advised that she follows up with her primary care doctor in about a week to follow up for a better glycemic control. The patient also requested to get information on apple sorter since she has not seen any apple sorter before. We therefore have given her information on Dr. Lee so she can follow up with him. Specifically we spent about 15 minutes going over smoking cessation. At the time of discharge, there are not any pending labs or imaging studies. Time spent for discharge is 38 minutes. cc: Abdiel Garza MD
[2017-03-05] MEDS ORDERED: PREDNISONE PO SCH (09:00)
--- NOTE | 2017-03-15 20:35 | PROVIDER DOCUMENTATION ---
This chart was entered by Adenike Palacios Scribe, acting as scribe for Wojciech Wilkerson MD. HPI-Respiratory General - General Chief Complaint: Return/Recheck Stated Complaint: RETURN/RECHECK Time Seen by Provider: 02/27/17 10:39 Source: patient Allergies/Adverse Reactions: Patient Allergies Allergy/AdvReac Type Severity Reaction Status Date / Time gemfibrozil [From Lopid] Allergy Severe pain Verified 08/27/16 17:56 lisinopril Allergy Severe SWELLING Verified 08/27/16 17:56 Home Medications: Home Medication List Medication Instructions Recorded Confirmed Last Taken Type Metformin [Glucophage] 1,000 mg PO BID 01/14/14 02/27/17 02/27/17 08:00 History Metoprolol Succinate E.r. [Toprol 100 mg PO DAILY 01/14/14 02/27/17 02/27/17 08: 00 History Xl] Montelukast [Singulair] 10 mg PO DAILY 01/14/14 02/27/17 02/27/17 08:00 History Omeprazole [Prilosec] 20 mg PO DAILY 01/14/14 02/27/17 02/27/17 08:00 History Spironolact/Hydrochlorothiazid 25 mg PO DAILY 01/14/14 02/27/17 02/27/17 08:00 History [Aldactazide 25-25 Tablet] Glimepiride [Amaryl] 4 mg PO DAILY 04/20/15 02/27/17 02/27/17 08:00 History Pramipexole [Mirapex] 1 mg PO QHS #0 tablet 07/12/15 02/27/17 02/26/17 21:00 Rx Aspirin [Aspir-Low] 81 mg PO DAILY 10/20/16 02/27/17 02/27/17 08:00 History Theophylline E.r. [[place]-24] 300 mg PO DAILY 10/20/16 02/27/17 02/27/17 08:00 History LOVAstatin [Mevacor] 10 mg PO WSUPPER #0 tablet 10/23/16 02/27/17 02/26/17 18: 00 Rx Cyanocobalamin (Vitamin B-12) 1,000 mcg PO DAILY 02/27/17 02/27/17 02/27/17 08: 00 History [B-12] Insulin Humalog 75/25 [Humalog Mix 20 unit SUBQ BID #1 vial 03/04/17 Unknown Rx 75/25] Levofloxacin [Levaquin] 750 mg PO Q24H #5 tablet 03/04/17 Unknown Rx Prednisone 20 mg PO DAILY #5 tablet 03/04/17 Unknown Rx - History of Present Illness-Resp Nature of Presenting Problem: 56 yo F presents to the ER with complaint of SOB and productive cough x1 week. Pt was seen here x4 days ago, diagnosed with bronchitis and given a z-pack but has not felt any improvement. States she has home O2 and a nebulizer at home. Denies fever/chills, CP, or n/v/d. Onset/Duration: reports: 1 week ago Cough Quality/Degree: reports: moderate, productive cough Current Respiratory Medication Therapy: Initiated A/A nebulizer, Initiated other (home O2) Associated Symptoms: reports: cough, shortness of breath, short of breath. denies: chest pain/soreness, wheezing Review of Systems - Adult - REVIEW OF SYSTEMS - ADULT Constitutional: denies: chills, fever Eyes: reports: no symptoms reported Ears, Nose, Mouth & Throat: reports: no symptoms reported Cardiovascular: denies: chest pain, palpitations Respiratory: reports: cough, shortness of breath Gastrointestinal: denies: diarrhea, nausea, vomiting Genitourinary: reports: no symptoms reported Musculoskeletal: reports: no symptoms reported Integumentary: reports: no symptoms reported Neurological: reports: no symptoms reported Psychiatric: reports: no symptoms reported Endocrine: reports: no symptoms reported Hematologic/Lymphatic: reports: no symptoms reported Allergic/Immunologic: reports: no symptoms reported All Other Systems: Reviewed and Negative Past History - Adult - PAST MEDICAL HISTORY-ADULT Review of Records: reports: Nursing Assessment Review, Medications Reviewed Cardiovascular: reports: HTN, hyperlipidemia Respiratory: reports: COPD Endocrine/Immune: reports: Diabetes - PRIOR SURGERIES/PROCEDURES Surgical/Procedure History: reports: tonsillectomy, back/neck - IMMUNIZATION STATUS Childhood Immunizations: See Nurse Assessment Flu Vaccine: See Nurse Assessment - SOCIAL HISTORY Smoking: less than 1 pack/day Provider spent 3-5 mins advising pt. on dangers of tobacco.: Discussed manners to quit use, and f/u contacts for add'l counseling. Physical Exam-General - PHYSICAL EXAM-ADULT Initial Vital Signs Reviewed: Yes - CONSTITUTIONAL General Appearance: alert, no apparent distress - EYES Eyes: PERRL/EOMI, pink conjunctivae - HEAD, EARS, NOSE, MOUTH & THROAT HENMT: normocephalic/atraumatic, normal ENT inspection, TMs normal, pharynx normal - NECK Neck: supple, normal inspection - RESPIRATORY Respiratory: no respiratory distress, rhonchi - CARDIOVASCULAR Cardiovascular: normal peripheral pulses, regular rate, rhythm, no edema - GASTROINTESTINAL (ABDOMEN) Abdominal Exam: normal bowel sounds, non tender, soft - MUSCULOSKELETAL Back Exam: no CVA tenderness, no vertebral tenderness Extremity: normal range of motion, non-tender, normal gait, normal inspection - SKIN Integumentary: normal color, warm/dry - NEUROLOGIC Neurologic: grossly normal, no motor/sensory deficits - PSYCHIATRIC Psych/Mental Status: normal mood/affect, normal thought content, normal thought process, oriented x 3 Progress - PLAN OF CARE/RESULTS Progress/Plan/Lab Results: Orders Category Date Time Status Admit - [facility] Routine AdmDCTranf 02/27/17 12:31 Ordered Activity - Up with Assistance ORDERED Care 02/27/17 12:31 Active FSBS/Accucheck Result AC + HS Care 02/27/17 12:31 Active FSBS/Accucheck Result AC + HS Care 02/27/17 22:06 Completed Home O2 Evaluation ORDERED Care 02/28/17 08:16 Completed Intake and Output-Strict ORDERED Care 02/27/17 12:31 Active Saline Loc NOW Care 02/27/17 10:25 Completed Vital Signs Order Q 8-HR ASSESS Care 02/27/17 12:31 Active Z-Document. for Tele Applied ORDERED Care 02/27/17 12:34 Completed Diabetic Diet Diet 02/27/17 12:33 Completed Diabetic Diet Diet 02/27/17 13:04 Completed CHEST-2 VIEWS [RAD] Stat Exams 02/27/17 10:25 Completed A1C HGB W EST AVG GLUCOSE [CHEM] Routine Lab 02/27/17 10:40 Completed ABG [RESP] DAILY Lab 02/28/17 05:30 Completed ABG [RESP] Routine Lab 02/27/17 10:15 Completed BASIC METABOLIC PANEL [CHEM] Routine Lab 03/01/17 05:48 Completed BLOOD CULTURE [BLDCUL] Stat Lab 02/27/17 11:05 Completed CBC WITH DIFF [HEME] Stat Lab 02/27/17 10:40 Completed CBC WITH NO DIFF [HEME] Routine Lab 02/28/17 05:35 Completed CBC WITH NO DIFF [HEME] Routine Lab 03/01/17 05:48 Completed COMPREHENSIVE METABOLIC PANEL [CHEM] Routine Lab 02/28/17 05:35 Completed COMPREHENSIVE METABOLIC PANEL [CHEM] Stat Lab 02/27/17 10:40 Completed LACTATE, PLASMA [CHEM] Stat Lab 02/27/17 10:40 Completed MAGNESIUM [CHEM] Routine Lab 02/28/17 05:35 Completed 0.9% Sodium Chloride Inj [Ns] 1,000 ml Med 02/27/17 12:34 Discontinued IV 75 mls/hr Albuterol 2.5MG/Ipratrop 0.5MG [Duoneb (A & A)] Med 02/27/17 12:16 Discontinued 3 ml .ROUTE .STK-MED ONE Albuterol 2.5MG/Ipratrop 0.5MG [Duoneb (A & A)] Med 02/27/17 12:06 Discontinued 3 ml INH NOW ONE Albuterol 2.5MG/Ipratrop 0.5MG [Duoneb (A & A)] Med 02/27/17 12:34 Discontinued 3 ml INH Q2H PRN PRN Albuterol 2.5MG/Ipratrop 0.5MG [Duoneb (A & A)] Med 02/27/17 15:30 Discontinued 3 ml INH RTQ4H Aspirin EC Med 02/28/17 09:00 Discontinued 81 mg PO DAILY Cyanocobalamin [Vitamin B-12] Med 02/28/17 09:00 Discontinued 1,000 microgm PO DAILY Enoxaparin [Lovenox] Med 02/28/17 09:00 Discontinued 40 mg SUBQ Q24H Glimepiride [Amaryl] Med 02/28/17 08:00 Discontinued 4 mg PO DAILY@0800 Guaifenesin/Codeine [Robitussin-AC] Med 02/28/17 13:31 Discontinued 10 ml PO Q4-6H PRN PRN Hydrochlorothiazide Med 02/28/17 09:00 Discontinued 25 mg PO DAILY Insulin Humalog 75/25 [Humalog Mix 75/25] Med 02/28/17 10:40 Discontinued 12 unit SUBQ QAM Insulin Humalog 75/25 [Humalog Mix 75/25] Med 02/28/17 21:00 Discontinued 4 unit SUBQ QPM Insulin Humalog 75/25 [Humalog Mix 75/25] Med 02/28/17 21:00 Discontinued 6 unit SUBQ QPM Insulin Humalog 75/25 [Humalog Mix 75/25] Med 02/28/17 09:00 Discontinued 8 unit SUBQ QAM Insulin Lispro Dose ([place]) [Humalog Dose ([place])] Med 02/27/17 16:00 Discontinued See Protocol SUBQ 0700,1100,1600,2100 Insulin Lispro Dose ([place]) [Humalog Dose ([place])] Med 02/28/17 07:00 Discontinued See Protocol SUBQ 0700,1100,1600,2100 LOVAstatin [Mevacor] Med 02/28/17 17:00 Discontinued 10 mg PO WSUPPER Levofloxacin 750 mg/D5w [Levaquin 750 mg/D5w] Med 02/27/17 12:45 Discontinued 750 mg in 150 ml IV Q24H Metformin [Glucophage] Med 02/28/17 08:00 Discontinued 1,000 mg PO BID CC Methylprednisolone Sod Succ [Solu-Medrol] Med 02/27/17 12:06 Discontinued 125 mg IV NOW ONE Methylprednisolone Sod Succ [Solu-Medrol] Med 02/28/17 12:00 Discontinued 40 mg IV Q8H Methylprednisolone Sod Succ [Solu-Medrol] Med 02/27/17 20:00 Discontinued 60 mg IV Q8H Metoprolol Succinate E.r. [Toprol Xl] Med 02/28/17 09:00 Discontinued 100 mg PO DAILY Montelukast [Singulair] Med 02/28/17 09:00 Discontinued 10 mg PO DAILY Nicotine Patch [Nicoderm Patch] Med 02/28/17 09:00 Discontinued 21 mg TD DAILY Omeprazole [Prilosec] Med 02/28/17 07:30 Discontinued 20 mg PO ACB Ondansetron [Zofran] Med 02/27/17 12:31 Discontinued 4 mg IV Q4H PRN PRN Pramipexole [Mirapex] Med 02/27/17 22:15 Discontinued 1 mg PO QHS Spironolactone [Aldactone] Med 02/28/17 09:00 Discontinued 25 mg PO DAILY Theophylline E.r. [Corby-Dur] Med 02/28/17 09:00 Discontinued 300 mg PO DAILY Aerosol Treatments Routine Ot 02/27/17 12:07 Completed Aerosol Treatments Routine Ot 02/27/17 12:35 Completed Aerosol Treatments Stat Ot 02/27/17 12:07 Completed Aerosol Treatments Stat Ot 02/27/17 12:35 Completed Oxygen Device Routine Ot 02/27/17 12:05 Completed Pulse Oximetry Stat [facility] 02/27/17 10:25 Completed Telemetry [OM.EQ] Routine Ot 02/27/17 12:31 Active Result Diagrams: 03/02/17 06:20 03/03/17 05:40 - CONSULTS/PCP/HOSPITALIST Notification #1 *Consult/PCP/Hospitalist*: Dr. Cedeno Time Discussed: 11:56 Consult Disposition: Admit Departure - Departure Date of Disposition Decision: 02/27/17 Time of Disposition Decision: 12:00 DIAGNOSIS: Ventilatory failure Respiratory failure Qualifiers: Chronicity: unspecified Respiratory failure complication: unspecified whether with hypoxia or hypercapnia Qualified Code(s): J96.90 - Respiratory failure, unspecified, unspecified whether with hypoxia or hypercapnia Disposition: ADMITTED INPATIENT 09 Certified Medical Emergency: Emergent Condition: Stable - Critical Care Note This patient required my direct & personal management of CC.: No This chart was documented by the indicated scribe, (Adenike Palacios Scribe) and accurately reflects the services I performed and decisions made by me, Wojciech Wilkerson MD, as attested by the provider's signature.
== END 2017-03-04 14:00 | disposition home health service (06) ==
LOC: P.MEDSURG 10:11 → P.ED 10:11 → OBSVTOIN 11:56 → SUATTDRO 02-28 18:35
PROVIDERS: ATTEND Internal Medicine

== ENCOUNTER 2019-07-07 16:24 | Inpatient (IN) ==
[2019-07-07 17:04] LABS: BASO# 0.03 X1000 (0.0-0.2); BASO% 0.3 % (0.0-0.8); EOS# 0.17 X1000 (0.0-0.7); EOS% 1.7 % (0.0-10.0); HEMATOCRIT 49.6 % (37.0-47.0); HEMOGLOBIN 15.8 g/dL (12.0-16.0); IMM GRAN# 0.01 X1000 (0.0-0.04); IMM GRAN% 0.1 % (0.0-0.5); LYMPH# 1.67 X1000 (1.2-3.4); MCH 31.3 PG (27-31); MCHC 31.9 g/dL (33-37); MCV 98.2 FL (81-99); MONO% 7.1 % (1.7-9.3); MPV 10.6 FL (7.4-10.4); NEUT# 7.27 X1000 (1.4-6.5); NEUT% 73.8 % (42.2-75.2); PLT 196 X1000 (130-400); RBC 5.05 XMIL (4.2-5.4); RDW 13.8 % (11.5-14.5); WBC 9.85 X1000 (4.8-10.8)
[2019-07-07 17:18] LABS: INR 0.91; PROTIME 12.7 Seconds (11.0-16.0)
[2019-07-07 17:19] LABS: PTT 28.1 Seconds (22.3-41.8)
[2019-07-07 17:29] LABS: AGAP 15; ALBUMIN 4.8 g/dL (3.5-5.0); ALKALINE PHOSPHATASE 97 U/L (32-104); BUN 29 mg/dL (8-22); CALCIUM 10.2 mg/dL (8.8-10.2); CHLORIDE 93 mmol/L (98-107); CK PROFILE 49 U/L (24-173); COSMO 294; CREATININE 0.5 mg/dL (0.5-0.9); ESTIMATED GFR > 60; GLUCOSE 318 mg/dL (70-104); GOT 15 U/L (10-30); GPT 13 U/L (10-36); POTASSIUM 4.4 mmol/L (3.5-5.1); SODIUM 138 mmol/L (136-145); TCO2 31 mmol/L (25-35); TOTAL PROTEIN 6.9 g/dL (6.3-8.3)
--- NOTE | 2019-07-07 17:33 | Diag Imaging Result Doc PS360 ---
EXAM: CHEST-1 VIEW HISTORY: sob TECHNIQUE: Chest single view COMPARISON: 07/05/2019 FINDINGS: The lungs are well expanded. The heart is not enlarged. The vessels are not distended. There are no infiltrates. No effusion identified. Right base granuloma. IMPRESSION: Negative exam. Electronically signed by Ovidio Warner 07/07/2019 5:31 PM
[2019-07-07] MEDS ORDERED: NS 1,000 ML IV ONE ×2 (17:46→18:41)
[2019-07-07] MEDS ORDERED: DUONEB (A & A) INH ONE (17:56)
--- NOTE | 2019-07-07 17:56 | PROVIDER DOCUMENTATION ---
This chart was entered by Nathalia Garrett Scribe, acting as scribe for Maria Teresa Levine MD. HPI-General Adult - General Chief Complaint: SEPSIS ALERT - P Stated Complaint: ELEVATED BLOOD SUGAR Time Seen by Provider: 07/07/19 16:59 Source: patient Allergies/Adverse Reactions: Patient Allergies Allergy/AdvReac Type Severity Reaction Status Date / Time gemfibrozil [From Lopid] Allergy Severe pain Verified 04/25/18 07:06 lisinopril Allergy Severe SWELLING Verified 04/25/18 07:06 Home Medications: Home Medication List Medication Instructions Recorded Confirmed Last Taken Type Metformin [Glucophage] 1,000 mg PO BID 01/14/14 05/09/19 05/09/19 History Montelukast [Singulair] 10 mg PO DAILY 01/14/14 05/09/19 05/09/19 History Pramipexole [Mirapex] 1 mg PO QHS #0 tablet 07/12/15 05/09/19 05/09/19 Rx Aspirin [Aspir-Low] 325 mg PO DAILY 10/20/16 05/09/19 05/09/19 History Gabapentin 300 mg PO BID 07/24/17 05/09/19 05/09/19 History Albuterol 2.5MG/Ipratrop 0.5MG 3 ml INH 4XDAY 04/20/18 05/09/19 05/09/19 14:30 History [Duoneb (A & A)] Budesonide/Formoterol Fumarate 2 puff IH BID 04/20/18 05/09/19 05/09/19 History [Symbicort 160-4.5 Mcg Inhaler] Lansoprazole [Prevacid] 30 mg PO DAILY 04/20/18 05/09/19 05/09/19 History Rosuvastatin Calcium [Crestor] 40 mg PO DAILY 04/20/18 05/09/19 05/09/19 History Ascorbic Acid [Vitamin C] 500 mg PO DAILY tablet 07/04/18 05/09/19 Unknown Rx Furosemide [Lasix] 40 mg PO DAILY #30 tab 07/04/18 05/09/19 05/09/19 Rx Losartan [Cozaar] 50 mg PO DAILY #30 tab 07/04/18 05/09/19 05/09/19 Rx Azithromycin [Zithromax Z-Keanu] 250 mg PO DIRECTED #1 pkg 05/09/19 Unknown Rx Liraglutide [Victoza] 1.2 mg SUBQ DAILY 05/09/19 05/09/19 05/09/19 History Methylprednisolone [Medrol Dosepak] 4 mg PO DIRECTED #1 pkg 05/09/19 Unknown Rx Azithromycin [Zithromax] 250 mg PO DAILY PRN #6 tab 07/05/19 Unknown Rx Budesonide [Pulmicort] 0.5 mg INHALATION BID #1 packet 07/05/19 Unknown Rx Cetirizine HCl [Zyrtec] 10 mg PO DAILY #30 tab.rapdis 07/05/19 Unknown Rx Prednisone 50 mg PO DAILY #5 tab 07/05/19 Unknown Rx - History of Present Illness -Gen Adult Nature of Presenting Problems: 58yof presents to ED cc SOB & wheezing. Pt reports she was seen in ED on Wednesday for same symptoms, dx w/ COPD exacerbation and given prednisone but she can't take it b/c sugar is running too high. Pt reports she is feeling worse. Location of Pain/Injury: reports: chest Quality of Pain: reports: tightness Severity: reports: moderate Onset/Duration: reports: 1 week ago Timing: reports: still present Context/Activities at Onset: reports: light activity Modifying Factors: worse with: breathing, exercise Associated Symptoms: reports: shortness of breath Similar Symptoms Previously?: Yes Recently seen or treated by another doctor?: Yes (seen in ED Wednesday) Review of Systems - Adult - REVIEW OF SYSTEMS - ADULT Constitutional: reports: see HPI, fatique. denies: chills, fever Eyes: reports: no symptoms reported Ears, Nose, Mouth & Throat: reports: no symptoms reported Cardiovascular: reports: see HPI. denies: chest pain Respiratory: reports: see HPI, cough, shortness of breath, wheezing Gastrointestinal: reports: see HPI. denies: nausea, vomiting Genitourinary: reports: no symptoms reported Musculoskeletal: reports: no symptoms reported Integumentary: reports: no symptoms reported Neurological: reports: no symptoms reported Psychiatric: reports: no symptoms reported Endocrine: reports: no symptoms reported Hematologic/Lymphatic: reports: no symptoms reported Allergic/Immunologic: reports: no symptoms reported All Other Systems: Reviewed and Negative Past History - Adult - PAST MEDICAL HISTORY-ADULT Review of Records: reports: Nursing Assessment Review, Medications Reviewed, Social history reviewed & non-contributory. Major Childhood Illnesses: reports: denies history Cardiovascular: reports: HTN, hyperlipidemia Respiratory: reports: asthma, COPD Gastrointestinal: reports: denies history Obstetrical/Gynecological: reports: denies history Genitourinary: reports: denies history Musculoskeletal: reports: chronic pain Neurological: reports: denies history Endocrine/Immune: reports: Diabetes Other Conditions: reports: denies history - PRIOR SURGERIES/PROCEDURES Surgical/Procedure History: reports: tonsillectomy, back/neck - IMMUNIZATION STATUS Childhood Immunizations: See Nurse Assessment Flu Vaccine: See Nurse Assessment - FAMILY HISTORY Family History: reviewed, not pertinent - SOCIAL HISTORY Smoking: cigarettes, greater than 1 pack/day Provider spent 3-5 mins advising pt. on dangers of tobacco.: Discussed manners to quit use, and f/u contacts for add'l counseling. Physical Exam-General - PHYSICAL EXAM-ADULT Initial Vital Signs Reviewed: Yes - CONSTITUTIONAL General Appearance: alert. negative: anxious, combative - EYES Eyes: PERRL/EOMI, pink conjunctivae. negative: photophobia - HEAD, EARS, NOSE, MOUTH & THROAT HENMT: normocephalic/atraumatic, moist mucous membranes. negative: angioedema - NECK Neck: non-tender, full range of motion, supple - RESPIRATORY Respiratory: chest non-tender, normal breath sounds, wheezing (mild expiratory). negative: crackles - CARDIOVASCULAR Cardiovascular: normal peripheral pulses, no edema, tachycardia. negative: regular rate, rhythm, bradycardia - GASTROINTESTINAL (ABDOMEN) Abdominal Exam: normal bowel sounds, non tender, soft. negative: rebound - MUSCULOSKELETAL Extremity: normal range of motion, normal inspection. negative: deformity - SKIN Integumentary: normal color. negative: diaphoresis, jaundice - PSYCHIATRIC Psych/Mental Status: normal mood/affect, oriented x 3. negative: anxious, disheveled Progress - PLAN OF CARE/RESULTS Progress/Plan/Lab Results: Vital Signs - 8 hr 07/07/19 16:40 Temperature 98.3 F Pulse Rate 107 H Respiratory Rate 22 Blood Pressure 148/72 O2 Sat by Pulse Oximetry 83 L Laboratory Results - last 24 hr 07/07/19 07/07/19 16:55 16:55 WBC 9.85 RBC 5.05 Hgb 15.8 Hct 49.6 H MCV 98.2 MCH 31.3 H MCHC 31.9 L RDW Std Deviation 13.8 Plt Count 196 MPV 10.6 H Immature Gran % (Auto) 0.1 Neut % (Auto) 73.8 Lymph % (Auto) 17.0 L Sac % (Auto) 7.1 Eos % (Auto) 1.7 Baso % (Auto) 0.3 Immature Gran # (Auto) 0.01 Neut # (Auto) 7.27 H Lymph # (Auto) 1.67 Sac # (Auto) 0.70 H Eos # (Auto) 0.17 Baso # (Auto) 0.03 POC Glucose 254 H Orders Category Date Time Status Cardiac Monitoring DIRECTED Care 07/07/19 16:48 Active IV Insertion ORDERED Care 07/07/19 16:48 Completed Notify MD of + Sepsis Screen NOW Care 07/07/19 16:48 Completed Notify Physician As Ordered Care 07/07/19 16:48 Completed CHEST-1 VIEW [RAD] Stat Exams 07/07/19 16:48 Ordered BLOOD CULTURE [BLDCUL] Stat Lab 07/07/19 16:55 Ordered CBC WITH DIFF [HEME] Stat Lab 07/07/19 16:55 Completed CK PROFILE [SP CHEM] Stat Lab 07/07/19 16:55 Received COMPREHENSIVE METABOLIC PANEL [CHEM] Stat Lab 07/07/19 16:55 Received LACTATE, PLASMA [CHEM] Lab 07/07/19 16:55 Ordered LACTATE, PLASMA [CHEM] Lab 07/07/19 20:00 Uncollected LACTATE, PLASMA [CHEM] Lab 07/07/19 23:00 Uncollected PROTIME WITH INR [COAG] Stat Lab 07/07/19 16:55 Received PTT [COAG] Stat Lab 07/07/19 16:55 Received TROPONIN T Stat Lab 07/07/19 16:[address] W/POSS RFLX CULT [URINALYSIS] Stat Lab 07/07/19 16:48 Uncollected Oxygen Device Stat Oth 07/07/19 16:48 Active Result Diagrams: 07/07/19 16:55 07/07/19 16:55 - EKG 1 Time of EKG reading by physician:: 16:51 EKG Read and Signed by:: Maria Tereas Levine EKG Interpretation (*Must complete 3 of following elements*): Abnormal (biatrial enlargement cannot rule out anterior infarct) Rate: 109 Rhythm: sinus tachycardia [place]: right QRS: normal OR Interval: normal - XRAY 1 XRAY: Bilateral XRAY Study: Chest Impression: See EMR Report (IMPRESSION: Negative exam. Electronically signed by Ovidio Timmy 07/07/2019 5:31 PM) Departure - Departure Date of Disposition Decision: 07/07/19 Time of Disposition Decision: 17:55 DIAGNOSIS: COPD (chronic obstructive pulmonary disease) Qualifiers: COPD type: unspecified COPD Qualified Code(s): J44.9 - Chronic obstructive pulmonary disease, unspecified Disposition: ADMITTED INPATIENT 09 Certified Medical Emergency: Emergent Condition: Stable Additional Instructions: ED Follow Up Instructions: You have been treated by a care provider in the Emergency Department. These instructions are being provided to you so you can have an understanding of how to care for yourself upon discharge. Upon discharge from the Emergency Department, you are responsible for making arrangements for follow-up care by a physician of your choice. Take all prescribed medications as directed. Return to the Emergency Department immediately for any new or worsening symptoms. You may call the Physician Referral phone number at [phone] to obtain a list of Physicians who are taking new patients. Referrals and Follow-Ups: Kristi Huddleston CRNP [Primary Care Provider] - Discharge Education: Steps to Quit Smoking, [id number] - Critical Care Note This patient required my direct & personal management of CC.: No Attestation - Physician/ SUE Attestation Patient care was provided by Advanced Practice Provider:: No The physician spent face to face time with patient:: Yes Advanced Practice Provider documentation review:: Supervising physician onsite and consulted in the evaluation and care of this patient. The physician did have a face to face encounter with the patient. This chart was documented by the indicated scribe, (Nathalia Garrett Scribe) and accurately reflects the services I performed and decisions made by me, Maria Teresa Levine MD, as attested by the provider's signature.
[2019-07-07] MEDS ORDERED: HUMULIN R IV ONE (17:57)
[2019-07-07] MEDS ORDERED: ROCEPHIN IV ONE (17:57)
[2019-07-07] MEDS ORDERED: HUMULIN R (PARKWAY) ONE (18:02)
[2019-07-07] MEDS ORDERED: ZOFRAN IV PRN (18:41)
[2019-07-07] MEDS ORDERED: MORPHINE IV PRN (18:41)
[2019-07-07] MEDS: LOVENOX SUBQ SCH (19:32)
[2019-07-07 19:59] LABS: BILIRUBIN URINE NEGATIVE (NEGATIVE); BLOOD URINE NEGATIVE (NEGATIVE); CLARITY CLEAR (CLEAR); COLOR YELLOW; KETONE URINE TRACE mg/dL (NEGATIVE); LEUKOCYTES URINE TRACE (NEGATIVE); NITRITE URINE NEGATIVE (NEGATIVE); PROTEIN URINE NEGATIVE (NEGATIVE); UROBILINOGEN URINE NORMAL
[2019-07-07 20:05] LABS: URINE BACTERIA 2+ /HFP; URINE EPITHELIAL CELLS >10 /HPF (<10); URINE RBC <10 /HPF (<10); URINE SOURCE CLEAN CATCH
[2019-07-07] MEDS: DUONEB (A & A) INH SCH ×2 (22:25→22:30)
[2019-07-08] MEDS ORDERED: PROTONIX PO SCH (07:00)
[2019-07-08] MEDS: DUONEB (A & A) INH SCH ×5 (07:35→23:01)
--- NOTE | 2019-07-08 09:37 | EKG Report ---
Test Performed on : 07/07/2019 4:51:35 PM Test Reason : sob Blood Pressure : / mmHG Vent. Rate : 109 BPM Atrial Rate : 109 BPM P-R Int : 150 ms QRS Dur : 090 ms QT Int : 340 ms P-R-T Axes : 083 105 080 degrees QTc Int : 457 ms Sinus tachycardia. Biatrial enlargement Rightward axis Cannot rule out Anterior infarct , age undetermined Abnormal ECG When compared with ECG of 30-JUN-2018 11:51, Vent. rate has increased BY 38 BPM Unconfirmed Result
[2019-07-08] MEDS ORDERED: VENTOLIN HFA INH PRN (10:21)
[2019-07-08] MEDS ORDERED: SOLU-MEDROL IV SCH (10:30)
[2019-07-08] MEDS: LASIX PO SCH (10:40)
[2019-07-08] MEDS: COZAAR PO SCH (10:40)
[2019-07-08] MEDS: ASPIRIN EC PO SCH (10:40)
[2019-07-08] MEDS: VITAMIN C PO SCH (10:40)
[2019-07-08] MEDS: NEURONTIN PO SCH ×2 (10:40→20:39)
[2019-07-08] MEDS: KLOR-CON PO SCH (10:41)
[2019-07-08] MEDS: ZYRTEC PO SCH (10:41)
[2019-07-08] MEDS: PULMICORT INH SCH ×2 (11:00→19:56)
[2019-07-08] MEDS: SYMBICORT 160/4.5 MICROGM INHALER INH SCH ×2 (11:07→19:57)
[2019-07-08] MEDS: VICTOZA SUBQ SCH (12:01)
[2019-07-08] MEDS: HUMALOG SUBQ SCH ×3 (12:02→21:44)
[2019-07-08] MEDS ORDERED: INSULIN PEN NEEDLES ONE (12:03)
--- NOTE | 2019-07-08 15:58 | HISTORY AND PHYSICAL ---
PRIMARY CARE PROVIDER: Kristi Huddleston. CHIEF COMPLAINT: Shortness of breath and wheezing. Also states blood sugar has been running high due to being given prednisone recently outpatient. HISTORY OF PRESENTING ILLNESS: This is a 58-year-old female who presents to [facility] ER with complaints of shortness of breath and wheezing over the past week that progressively worsened. States she was seen in the ED this past Wednesday and treated for a COPD and placed on prednisone that now has made her blood sugars run in the 300s so she stopped it and then started feeling worse again. Her blood sugar was 318 on arrival, she was saturating 83% on 2 L via nasal cannula when she arrived, her O2 is now up to 98% on 2 L. Her chest x-ray was negative but she is noted to be wheezing throughout her entire posterior lung greenwood so she is being admitted for further evaluation and treatment. PAST MEDICAL HISTORY: COPD, diabetes type 2, dyslipidemia, hypertension, GERD, neuropathy, chronic back pain and restless legs syndrome. PAST SURGICAL HISTORY: Of a carotid endarterectomy, back fusion, multiple skin grafts and a tonsillectomy. FAMILY HISTORY: Her father has a history of diabetes type 2 and from lung cancer. Mother of lung cancer. SOCIAL HISTORY: She currently lives with her , smokes a pack of cigarettes a day and has done so for the past 30 years. Denies any alcohol or illicit drug use. ALLERGIES: Gemfibrozil and lisinopril. HOME MEDICATIONS: We will hold her DuoNeb 4 times daily and Zithromax 250 p.o. daily p.r.n. Will continue her albuterol sulfate 2 puff inhalation q.4 hours p.r.n., vitamin C 500 mg p.o. daily, aspirin 325 mg p.o. daily, Pulmicort 0.5 mg inhalation b.i.d., Symbicort 160/4.5 mcg inhaler 2 puffs b.i.d., cetirizine 10 mg p.o. daily, Lasix 40 mg p.o. daily, gabapentin 300 mg p.o. b.i.d., lansoprazole 30 mg p.o. daily, Victoza 1.2 mg subcu daily, Cozaar 50 mg p.o. daily, metformin 1000 mg p.o. b.i.d. a.c., potassium 20 mEq p.o. daily, Mirapex 1 mg p.o. at bedtime, Crestor 40 mg p.o. at bedtime. LABORATORY DATA: Showed a white blood cell count 9.85, hemoglobin 15.8, hematocrit 49.6, platelets 196,000, PT and INR 12.7 and 0.91. Sodium of 138, potassium 4.4, chloride 93, CO2 31, BUN 29, creatinine 0.5, glucose 318, troponin less than 0.010. Plasma lactate on arrival was 2.8, repeat was down to 1.2 and around midnight was 0.9. Urinalysis was negative except for 2+ bacteria. Chest x-ray was a negative exam. REVIEW OF SYSTEMS: She denied any fever, chills, blurred vision, dizziness, chest pain, she was positive for a productive cough with yellow sputum and shortness of breath. Denied any abdominal pain, constipation, diarrhea, burning or hurting with urination. PHYSICAL EXAMINATION: On arrival she had a temperature of 98.3 degrees, pulse 107, respirations 22, blood pressure 148/72, saturating 83% on 2 L via nasal cannula, currently saturating 98% on 2 L via nasal cannula. GENERAL: This is a 58-year-old female who is lying in the bed and answers questions appropriately. HEENT: Normocephalic, atraumatic. Normal ENT inspection. Oropharynx and nares are clear. Pupils are equal, round, reactive to light and accommodation. Extraocular movements are intact. NECK: Normal inspection, normal range of motion. LUNGS: With wheezing and crackles throughout entire posterior lung greenwood, decreased on right, O2 via nasal cannula currently in use. Equal lung expansion, chest wall movement is noted. HEART: Regular rate and rhythm. No murmurs, rubs, or gallops. ABDOMEN: Soft, nontender, nondistended. Bowel sounds are present x4 quadrants. MUSCULOSKELETAL: She had 5/5 strength x4 extremities. NEUROLOGICAL: The cranial nerves 2-12 appear grossly intact. ASSESSMENT: 1. An acute chronic obstructive pulmonary disease exacerbation. 2. Diabetes type 2 with hyperglycemia most likely secondary to her steroid use. 3. Hypertension. 4. Tobacco abuse. OUR PLAN: She will be admitted to the medical unit, placed on a diabetic diet, will place her on pattern blood sugars with sliding scale insulin. Place her on DuoNeb q.4 hours, Rocephin 1 gram IV q.24, continue her current medications from home and Solu-Medrol 60 mg IV q.8 and wean as she improves. Urine culture, sputum culture and blood cultures are pending. This is dictation for a and further orders after seen by attending. Dictated by ASHLEY Ramesh for Grabiel Bernabe MD cc: ASHLEY Zapata MD
[2019-07-08] MEDS: LANTUS INSULIN SUBQ SCH (16:28)
[2019-07-08] MEDS: GLUCOPHAGE PO SCH (16:28)
[2019-07-08] MEDS: SOLU-MEDROL IV SCH (17:33)
[2019-07-08] MEDS: ROCEPHIN 1 GM in NS 50 ML IV SCH (17:33)
[2019-07-08] MEDS: LOVENOX SUBQ SCH ×2 (17:38→18:16)
--- NOTE | 2019-07-08 20:12 | PROGRESS NOTE ---
DATE: 07/08/2019 SUBJECTIVE: Overall she is doing better. OBJECTIVE: 169/61, heart rate 82, respiratory rate 18, temperature 97.6 degrees 95% on 2 L.Cardiovascular: Regular rate and rhythm. Pulmonary: Bilateral breath sounds, clear to auscultation. GI: Soft, nontender, nondistended. Bowel sounds are positive. LABORATORY DATA: White count 9. ASSESSMENT AND PLAN: Chronic obstructive pulmonary disease exacerbation. We will continue antibiotics, steroids, nebulizers, and continue to follow closely. This is a [id number] encounter note with ASHLEY Ramesh. cc: Grabiel Bernabe MD
[2019-07-08] MEDS: MIRAPEX PO SCH (20:39)
[2019-07-08] MEDS: CRESTOR PO SCH (20:39)
[2019-07-09] MEDS: SOLU-MEDROL IV SCH ×2 (02:02→10:21)
[2019-07-09 05:45] LABS: AGAP 10; BUN 20 mg/dL (8-22); CALCIUM 9.4 mg/dL (8.8-10.2); CHLORIDE 96 mmol/L (98-107); COSMO 289; CREATININE 0.5 mg/dL (0.5-0.9); ESTIMATED GFR > 60; GLUCOSE 397 mg/dL (70-104); POTASSIUM 4.8 mmol/L (3.5-5.1); SODIUM 135 mmol/L (136-145); TCO2 29 mmol/L (25-35)
[2019-07-09 05:52] LABS: HEMOGLOBIN 14.1 g/dL (12.0-16.0); IMM GRAN# 0.04 X1000 (0.0-0.04); IMM GRAN% 0.4 % (0.0-0.5); LYMPH% 5.1 % (20.5-51.1); MCH 30.8 PG (27-31); MCV 96.1 FL (81-99); MONO# 0.19 X1000 (0.11-0.59); MONO% 1.9 % (1.7-9.3); MPV 10.6 FL (7.4-10.4); NEUT# 9.03 X1000 (1.4-6.5); NEUT% 92.6 % (42.2-75.2); PLT 176 X1000 (130-400); RBC 4.58 XMIL (4.2-5.4); WBC 9.76 X1000 (4.8-10.8)
[2019-07-09 06:06] LABS: BANDS 2 % (0-1); LYMPHS 7 % (21-51); MONO 2 % (1-9); OVALOCYTES OCCASIONAL; POIKILOCYTOSIS OCCASIONAL; SEGS 88 % (42-75)
[2019-07-09 06:07] LABS: STOMATOCYTES OCCASIONAL
[2019-07-09] MEDS: PRILOSEC PO SCH (06:30)
[2019-07-09] MEDS: HUMALOG (PARKWAY) SUBQ SCH ×4 (06:35→20:45)
[2019-07-09] MEDS: GLUCOPHAGE PO SCH ×2 (07:38→16:50)
[2019-07-09] MEDS: ASPIRIN EC PO SCH ×2 (07:38→08:09)
[2019-07-09] MEDS: VITAMIN C PO SCH ×2 (07:39→08:11)
[2019-07-09] MEDS: COZAAR PO SCH ×2 (07:39→08:10)
[2019-07-09] MEDS: VICTOZA SUBQ SCH ×2 (07:39→08:11)
[2019-07-09] MEDS: KLOR-CON PO SCH ×2 (07:39→08:10)
[2019-07-09] MEDS: LASIX PO SCH ×2 (07:39→08:10)
[2019-07-09] MEDS: NEURONTIN PO SCH ×3 (07:39→20:45)
[2019-07-09] MEDS: ZYRTEC PO SCH ×2 (07:39→08:11)
[2019-07-09] MEDS: LANTUS INSULIN SUBQ SCH ×2 (07:40→08:10)
[2019-07-09] MEDS: DUONEB (A & A) INH SCH ×5 (08:05→23:11)
[2019-07-09] MEDS: PULMICORT INH SCH ×2 (08:22→20:14)
[2019-07-09] MEDS: SYMBICORT 160/4.5 MICROGM INHALER INH SCH ×2 (08:23→20:14)
[2019-07-09] MEDS ORDERED: VICTOZA SUBQ ONE (15:50)
[2019-07-09] MEDS ORDERED: LANTUS INSULIN SUBQ ONE (15:54)
--- NOTE | 2019-07-09 16:25 | PROGRESS NOTE ---
DATE: 07/09/2019 SUBJECTIVE: Patient has no major complaints. She is feeling better today. Breathing better. Sugars are still very high at 200 and 300. OBJECTIVE: Blood pressure is 159/59, heart rate 88, respiratory 18, temperature 98 degrees, 99% on room air.Cardiovascular: Regular rate and rhythm. Pulmonary: Bilateral breath sounds. Clear to auscultation. GI: Soft, nontender, nondistended. Bowel sounds are positive. LABORATORY DATA: White count 9, hemoglobin 14, hematocrit 46, platelets 176,000. Sugars have been pretty much 300 with a low today of 298. PROBLEM LIST: 1. Acute chronic obstructive pulmonary disease exacerbation. We are going to wean her steroids further as her breathing is much better. Anticipate discharge from that standpoint tomorrow, but we will see how she is doing. 2. Type 2 diabetes, hyperglycemia. This is not controlled. She is on metformin. She is on Victoza, which I have bumped up and she is on NovoLog and I have added a dose of Lantus, which we will increase that as well and see how her sugars do. DISPOSITION: Hopefully anticipate discharge but tomorrow. cc: Grabiel Bernabe MD
[2019-07-09] MEDS: ROCEPHIN 1 GM in NS 50 ML IV SCH (17:39)
[2019-07-09] MEDS: LOVENOX SUBQ SCH (17:45)
[2019-07-09] MEDS: CRESTOR PO SCH (20:45)
[2019-07-09] MEDS: MIRAPEX PO SCH (20:45)
[2019-07-09] MEDS ORDERED: SOLU-MEDROL IV SCH (22:00)
[2019-07-10 06:11] LABS: ESTIMATED GFR > 60
[2019-07-10 06:14] LABS: AGAP 10; BUN 23 mg/dL (8-22); CALCIUM 9.2 mg/dL (8.8-10.2); CHLORIDE 94 mmol/L (98-107); COSMO 293; CREATININE 0.7 mg/dL (0.5-0.9); HEMATOCRIT 44.8 % (37.0-47.0); HEMOGLOBIN 14.1 g/dL (12.0-16.0); IMM GRAN# 0.06 X1000 (0.0-0.04); IMM GRAN% 0.6 % (0.0-0.5); LYMPH# 0.47 X1000 (1.2-3.4); LYMPH% 4.7 % (20.5-51.1); MCH 30.5 PG (27-31); MCHC 31.5 g/dL (33-37); MONO# 0.33 X1000 (0.11-0.59); MONO% 3.3 % (1.7-9.3); MPV 10.5 FL (7.4-10.4); NEUT# 9.04 X1000 (1.4-6.5); NEUT% 91.4 % (42.2-75.2); PLT 174 X1000 (130-400); RBC 4.62 XMIL (4.2-5.4); SODIUM 135 mmol/L (136-145); TCO2 32 mmol/L (25-35)
[2019-07-10 06:17] LABS: GLUCOSE 438 mg/dL (70-104)
[2019-07-10] MEDS: HUMALOG (PARKWAY) SUBQ SCH ×4 (06:46→21:59)
[2019-07-10] MEDS: SYMBICORT 160/4.5 MICROGM INHALER INH SCH ×2 (07:48→19:31)
[2019-07-10] MEDS: PULMICORT INH SCH ×2 (07:48→19:31)
[2019-07-10] MEDS: DUONEB (A & A) INH SCH ×5 (07:48→22:48)
[2019-07-10 07:58] LABS: LYMPHS 5 % (21-51); MONO 2 % (1-9); SEGS 93 % (42-75)
[2019-07-10] MEDS: KLOR-CON PO SCH (08:31)
[2019-07-10] MEDS: COZAAR PO SCH (08:31)
[2019-07-10] MEDS: PRILOSEC PO SCH (08:31)
[2019-07-10] MEDS: NEURONTIN PO SCH ×2 (08:31→21:59)
[2019-07-10] MEDS: ASPIRIN EC PO SCH (08:31)
[2019-07-10] MEDS: VITAMIN C PO SCH (08:31)
[2019-07-10] MEDS: LASIX PO SCH (08:31)
[2019-07-10] MEDS: GLUCOPHAGE PO SCH ×2 (08:32→17:27)
[2019-07-10] MEDS: VICTOZA SUBQ SCH (08:32)
[2019-07-10] MEDS ORDERED: LANTUS INSULIN SUBQ SCH (09:00)
[2019-07-10] MEDS ORDERED: SOLU-MEDROL IV SCH (10:30)
[2019-07-10] MEDS ORDERED: LANTUS INSULIN SUBQ ONE (10:31)
[2019-07-10] MEDS: ZYRTEC PO SCH (11:09)
--- NOTE | 2019-07-10 15:57 | PROGRESS NOTE ---
DATE: 07/10/2019 SUBJECTIVE: Patient has no major complaints. OBJECTIVE: Blood pressure 132/62, heart rate 83, respiratory rate 21, and temperature 97.6 degrees.Cardiovascular: Regular rate and rhythm. Pulmonary: Bilateral breath sounds clear to auscultation. GI: Soft, nontender, and nondistended. Bowel sounds are positive. LABORATORY DATA: White count 9.9, hemoglobin and hematocrit 14 and 44, and platelets 174,000. Her sugar though has been up as high as 438 on average. It has been above 300 almost 400 despite the addition of medications. PROBLEM LIST: 1. Acute chronic obstructive pulmonary disease exacerbation. She is staying stable. I have stopped her steroids completely, and we will see how she does. Continue breathing treatments. 2. Type 2 diabetes with hyperglycemia. She really is not handling how much from that standpoint. I have stopped all intravenous steroids. She is still on inhaled steroids. She is on now Lantus, and I have added glipizide. She is on Victoza. She is on metformin. She is obviously very sensitive to the corticosteroids. In any case, she overall felt stable and anticipates discharge when we can get her sugars under control. cc: Grabiel Bernabe MD
[2019-07-10] MEDS: GLUCOTROL PO SCH (17:26)
[2019-07-10] MEDS: ROCEPHIN 1 GM in NS 50 ML IV SCH (17:38)
[2019-07-10] MEDS: LOVENOX SUBQ SCH (18:05)
[2019-07-10] MEDS: CRESTOR PO SCH (21:58)
[2019-07-10] MEDS: MIRAPEX PO SCH (21:59)
[2019-07-11] MEDS: HUMALOG (PARKWAY) SUBQ SCH ×2 (06:25→10:43)
[2019-07-11] MEDS: PRILOSEC PO SCH (06:25)
[2019-07-11 06:39] LABS: BASO# 0.01 X1000 (0.0-0.2); BASO% 0.1 % (0.0-0.8); EOS# 0.03 X1000 (0.0-0.7); EOS% 0.3 % (0.0-10.0); HEMATOCRIT 47.1 % (37.0-47.0); HEMOGLOBIN 15.4 g/dL (12.0-16.0); IMM GRAN# 0.04 X1000 (0.0-0.04); IMM GRAN% 0.5 % (0.0-0.5); LYMPH# 1.49 X1000 (1.2-3.4); LYMPH% 17.3 % (20.5-51.1); MCH 31.6 PG (27-31); MCHC 32.7 g/dL (33-37); MCV 96.5 FL (81-99); MONO% 9.3 % (1.7-9.3); MPV 10.5 FL (7.4-10.4); NEUT# 6.24 X1000 (1.4-6.5); NEUT% 72.5 % (42.2-75.2); PLT 168 X1000 (130-400); RBC 4.88 XMIL (4.2-5.4); RDW 13.4 % (11.5-14.5); WBC 8.61 X1000 (4.8-10.8)
[2019-07-11 06:50] LABS: AGAP 12; BUN 26 mg/dL (8-22); CALCIUM 9.7 mg/dL (8.8-10.2); CHLORIDE 94 mmol/L (98-107); COSMO 292; CREATININE 0.7 mg/dL (0.5-0.9); ESTIMATED GFR > 60; GLUCOSE 171 mg/dL (70-104); POTASSIUM 4.4 mmol/L (3.5-5.1); SODIUM 142 mmol/L (136-145); TCO2 37 mmol/L (25-35)
[2019-07-11] MEDS: PULMICORT INH SCH (07:45)
[2019-07-11] MEDS: SYMBICORT 160/4.5 MICROGM INHALER INH SCH (07:45)
[2019-07-11] MEDS: DUONEB (A & A) INH SCH ×2 (07:45→11:16)
[2019-07-11] MEDS: LASIX PO SCH ×2 (07:47→09:07)
[2019-07-11] MEDS: KLOR-CON PO SCH ×2 (07:47→09:07)
[2019-07-11] MEDS: NEURONTIN PO SCH ×2 (07:47→09:07)
[2019-07-11] MEDS: GLUCOTROL PO SCH ×2 (07:47→09:07)
[2019-07-11] MEDS: VITAMIN C PO SCH ×2 (07:47→09:06)
[2019-07-11] MEDS: ASPIRIN EC PO SCH ×2 (07:47→09:06)
[2019-07-11] MEDS: GLUCOPHAGE PO SCH (07:47)
[2019-07-11] MEDS: COZAAR PO SCH ×2 (07:47→09:07)
[2019-07-11] MEDS: LANTUS INSULIN SUBQ SCH ×2 (07:48→09:07)
[2019-07-11] MEDS: ZYRTEC PO SCH ×2 (07:48→09:06)
[2019-07-11] MEDS: VICTOZA SUBQ SCH ×2 (07:48→09:06)
[2019-07-11 12:03] VITALS: BP 138/61
--- NOTE | 2019-07-12 07:12 | DISCHARGE SUMMARY ---
ADMISSION DATE: 07/10/2019 DISCHARGE DATE: 07/11/2019 DIAGNOSES: 1. Chronic obstructive pulmonary disease acute on chronic exacerbation. 2. Diabetes mellitus type 2 with hyperglycemia, most likely secondary to steroid use. 3. Hypertension. 4. Tobacco abuse. DIAGNOSTICS: Chest x-ray revealed negative exam. Lungs are well expanded. Heart is not enlarged. Vessels are not distended. There are no infiltrates. No effusion identified. MICROBIOLOGY: 1. Blood cultures x2 revealed no growth after 48 hours. 2. Urine culture revealed no pathogenic growth. 3. Sputum culture. Normal nimisha. HOSPITAL COURSE: Ms. Lanza presented to the emergency room complaining of shortness of breath and wheezing with elevated blood sugars as she had recently had steroids. She was placed on DuoNeb's q.4 hours with IV steroids to taper. Urine culture, sputum and blood cultures all were negative for bacteria. She was given Rocephin initially 1 g IV q.24 hours. Thankfully, she has improved and is ready for discharge. Blood sugars were in the 300s on admission. After IV steroids, blood sugars did go up to the 400s. Once IV steroids were discontinued, her blood sugars have been in the 160 to 240 range. DISCHARGE VITAL SIGNS: Blood pressure is 149/60 with a heart rate of 90, respirations 18, temperature 97.8 degrees oral with O2 saturations 96 to 97 percent on nasal cannula at 2 L. DISCHARGE PHYSICAL EXAMINATION: Cardiovascular: Regular rate and rhythm. S1 and S2 appreciated. She has no lower extremity edema. Peripheral pulses are palpable x4 extremities and calves are nontender. Pulmonary: Breath sounds are clear. No increased work of breathing noted. Chest rises and falls symmetric with respiration. Gastrointestinal: Abdomen is soft, nontender, and nondistended with bowel sounds in all 4 quadrants. Neurologic: She is alert and oriented x3. Skin: Warm and dry. DISCHARGE MEDICATIONS: 1. Victoza 1.2 mg subcutaneous daily. 2. Omnicef 300 mg p.o. b.i.d. x5 days. 3. Pulmicort b.i.d. 4. Zithromax 250 mg daily, to continue her prescription. 5. DuoNeb's 4 times a day. 6. Crestor 40 mg p.o. at bedtime. 7. Mirapex 1 mg p.o. at bedtime. 8. Klor-Con 20 mEq p.o. daily. 9. Metformin 1000 mg p.o. b.i.d. 10. Cozaar 50 mg p.o. daily. 11. Protonix 30 mg p.o. daily. 12. Gabapentin 300 mg p.o. b.i.d. 13. Lasix 40 mg p.o. daily. 14. Zyrtec 10 mg p.o. daily. 15. Symbicort 160/4.5 two puffs b.i.d. 16. Aspirin 325 p.o. daily. 17. Vitamin C 500 mg p.o. daily. FOLLOW-UP: ASHLEY Zapata her primary care provider, she needs to call to schedule an appointment to be seen in 1 to 2 weeks. She needs to call to be seen sooner or return to the ER for any syncope, dizziness, chest pain, palpitations, temperature greater than 101, increasing cough, any nausea, vomiting, diarrhea, constipation, black or bloody vomitus or stools, any hematuria, dysuria, frequency, or urgency. She is being discharged home in stable condition with family members. TIME SPENT: This is a greater than 30 minute discharge. Dictated by ASHLEY Chau for Brijesh Cedeno MD cc: ASHLEY Chau MD Susan Alexander, CRNP
--- NOTE | 2019-07-12 10:48 | DISCHARGE SUMMARY ---
ADMISSION DATE: 07/10/2019 DISCHARGE DATE: 07/11/2019 DISCHARGE DIAGNOSES: 1. Chronic obstructive pulmonary disease with exacerbation. 2. Diabetes with hyperglycemia exacerbated by steroids, currently improved. CONSULTATIONS: None. PROCEDURES: None. BRIEF HOSPITAL COURSE: The patient is a 58-year-old female who presented to the emergency department with increased cough, congestion, shortness of breath, increased work of breathing. She was admitted to the hospital on breathing treatments, steroids. Her blood glucose did increase to 438 secondary to steroids. After stopping the steroids and adjusting her medications, her blood sugar today is 171. States that she is feeling much better. DISPOSITION: Patient will be discharged home. Discussed with her to continue her home diabetic medications, to follow up outpatient with treatment facility of choice. Greater than 30 minutes were spent in total care. cc: Brijesh Cedeno MD
== END 2019-07-11 12:43 | disposition home health service (06) | DRG 192 ==
LOC: P.MEDSURG 16:24 → P.ED 16:24 → SUATTDRO 07-10 07:48
PROVIDERS: ATTEND Family Medicine